=== PATIENT | female | born 1990 | race Caucasian/White ===

== ENCOUNTER 2019-03-14 19:55 | Emergency (ER) | payer SELFPAY ==
[2019-03-14] MEDS ORDERED: HYDROCODONE/APAP 5/325 MG TAB ONE (21:23)
--- NOTE | 2019-03-14 21:56 | ER ---
Nurse's Notes [facility] Name: Leonie Eaton Age: 29 yrs Sex: Female : 1990 Arrival Date: 03/14/2019 Time: 19:59 Bed 19 Private MD: Diagnosis: Other sprain of left foot;Sprain of ankle Presentation: 03/14 20:31 Presenting complaint: Patient states: Fell in a rut this evening, pain and swelling to lp1 lateral left foot; pain when bearing weight. Transition of care: patient was not received from another setting of care. Onset of symptoms was March 14, 2019 at 19:30. Risk Assessment: Do you want to hurt yourself or someone else? Patient reports no desire to harm self or others. Initial Sepsis Screen: Does the patient meet any 2 criteria? No. Patient's initial sepsis screen is negative. Does the patient have a suspected source of infection? No. Patient's initial sepsis screen is negative. Care prior to arrival: None. 20:31 Method Of Arrival: Ambulatory lp1 20:31 Acuity: VALERY 4 lp1 Triage Assessment: 03/15 00:50 General: Appears uncomfortable, Behavior is calm, cooperative. cr4 00:52 Injury Description: patient was walking and stepped on a small hole/dip in the ground. cr4 She heard something pop. 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 - Social history:: Smoking status: Patient/guardian denies using tobacco. - Ebola Screening: : No symptoms or risks identified at this time. Screenin:33 Abuse screen: Denies threats or abuse. Denies injuries from another. Nutritional lp1 screening: No deficits noted. Tuberculosis screening: No symptoms or risk factors identified. 21:00 Fall Risk None identified. cr4 Assessment: 20:50 General: Appears uncomfortable, Behavior is calm, cooperative, appropriate for age. cr4 Pain: Complains of pain in left lateral foot. Neuro: Reports numbness in left lateral foot. Cardiovascular: Denies chest pain, lightheadedness, nausea, shortness of breath. Respiratory: Denies cough, shortness of breath labored breathing. GI: No signs and/or symptoms were reported involving the gastrointestinal system. Patient currently denies. : No signs and/or symptoms were reported regarding the genitourinary system. EENT: No signs and/or symptoms were reported regarding the EENT system. Derm: Skin is moist, Skin is pink, warm \\T\\ dry. Musculoskeletal: Capillary refill < 3 seconds, Range of motion: intact in all extremities, raised area on left lateral foot. Tenderness present in left lateral foot. Reports numbness in left lateral foot. 21:30 Reassessment: Patient and/or family updated on plan of care and expected duration. Pain cr4 level reassessed. Patient states feeling better. Patient states symptoms have improved. Vital Signs: 20:31 BP 159 / 71; Pulse 71; Resp 18; Temp 98.4(TE); Pulse Ox 100% on R/A; Weight 97.52 kg lp1 (R); Height 4 ft. 9 in. (144.78 cm); Pain 10/10; 22:00 BP 130 / 78; Pulse 80; Resp 18; Temp 97.6; Pulse Ox 98% ; Pain 2/10; cr4 20:31 Body Mass Index 46.53 (97.52 kg, 144.78 cm) lp1 ED Course: 19:59 Patient arrived in ED. ag3 20:31 Triage completed. lp1 20:31 Arm band placed on left wrist. lp1 20:34 Jason Nunez PA is PHCP. jmm 20:34 Dawit Rodney MD is Attending Physician. jmm 21:00 Patient has correct armband on for positive identification. Bed in low position. Call cr4 light in reach. Side rails up X2. 21:11 Foot Left 3 View XRAY In Process Unspecified. EDMS 21:11 Ankle Left 3 View XRAY In Process Unspecified. EDMS 21:50 Crutch training done. Orthoglass splint: Posterior short lleg splint applied on left cr4 leg. 21:55 Jonathan Willis MD is Referral Physician. jmm 22:12 No provider procedures requiring assistance completed. Patient did not have IV access cr4 during this emergency room visit. Administered Medications: 21:27 Drug: [place] 5 mg-325 mg 1 tabs Route: PO; cr4 Outcome: 21:56 Discharge ordered by . manjinder 22:12 Discharged to home ambulatory, with crutches, with friend. cr4 22:12 Condition: good 22:12 Discharge instructions given to patient, family, Instructed on discharge instructions, follow up and referral plans. crutch walking, Demonstrated understanding of Prescriptions given X 22:13 Patient left the ED. cr4 Signatures: Dispatcher [employer] EDMS Jason Nunez PA PA jmm Ruiz, Claudia RN RN cr4 Danyell Lovett RN RN lp1 Ansley Matthews3
--- NOTE | 2019-03-14 21:57 | EDPHYS ---
Physician Documentation [facility] Name: Leonie Eaton Age: 29 yrs Sex: Female : 1990 Arrival Date: 03/14/2019 Time: 19:59 Bed 19 Private MD: ED Physician Dawit Rodney HPI: 03/14 20:39 This 29 yrs old Female presents to ER via Ambulatory with complaints of Foot jmm Injury. 20:39 The patient presents with an injury. Onset: The symptoms/episode began/occurred jmm acutely. Modifying factors: The symptoms are alleviated by nothing. the symptoms are aggravated by nothing. Associated signs and symptoms: Pertinent positives: swelling, Pertinent negatives. This is a 29 year old female that presents to the ED with complaints of left foot and ankle pain after twisting her foot as she stepped in a rut in her back yard. . 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 - Social history:: Smoking status: Patient/guardian denies using tobacco. - Ebola Screening: : No symptoms or risks identified at this time. ROS: 20:39 Constitutional: Negative for fever, chills, and weight loss, Cardiovascular: Negative jmm for chest pain, palpitations, and edema, Respiratory: Negative for shortness of breath, cough, wheezing, and pleuritic chest pain. 20:39 MS/extremity: Positive for injury or acute deformity, pain, swelling. 20:39 All other systems are negative. Exam: 20:39 Constitutional: This is a well developed, well nourished patient who is awake, alert, jmm and in no acute distress. Head/Face: atraumatic. Eyes: EOMI, no conjunctival erythema appreciated ENT: Moist Mucus Membranes Neck: Trachea midline, Supple Chest/axilla: Normal chest wall appearance and motion. Cardiovascular: Regular rate and rhythm. No edema appreciated Respiratory: Normal respirations, no respiratory distress appreciated Abdomen/GI: Non distended, soft Skin: General appearance color normal 20:39 Musculoskeletal/extremity: swelling noted ot the left ankle, metatarsal os ttp. compartments are soft, NVI. 20:39 Skin: Appearance: Color: normal in color. 20:39 Neuro: Orientation: is normal, Mentation: is normal, Memory: is normal. 20:39 Psych: Behavior/mood is pleasant, cooperative. Vital Signs: 20:31 BP 159 / 71; Pulse 71; Resp 18; Temp 98.4(TE); Pulse Ox 100% on R/A; Weight 97.52 kg lp1 (R); Height 4 ft. 9 in. (144.78 cm); Pain 10/10; 22:00 BP 130 / 78; Pulse 80; Resp 18; Temp 97.6; Pulse Ox 98% ; Pain 2/10; cr4 20:31 Body Mass Index 46.53 (97.52 kg, 144.78 cm) lp1 MDM: 20:36 Patient medically screened. [facility] 20:42 Data reviewed: vital signs, nurses notes. [facility] 21:55 Data reviewed: radiologic studies, plain films. Counseling: I had a detailed discussion de with the patient and/or guardian regarding: the historical points, exam findings, and any diagnostic results supporting the discharge/admit diagnosis, radiology results, the need for outpatient follow up, to return to the emergency department if symptoms worsen or persist or if there are any questions or concerns that arise at home. 03/14 20:37 Order name: Foot Left 3 View XRAY [facility] 03/14 20:39 Order name: Ankle Left 3 View XRAY [facility] 03/14 21:37 Order name: Posterior Orthoglass Ankle Splint [facility] 03/14 21:37 Order name: Crutches; Complete Time: 00:58 [facility] Administered Medications: 21:27 Drug: [place] 5 mg-325 mg 1 tabs Route: PO; cr4 Disposition: 03/14/19 21:56 Discharged to Home. Impression: Other sprain of left foot, Sprain of ankle. - Condition is Stable. - Discharge Instructions: Ankle Sprain, Foot Sprain. - Medication Reconciliation Form, Thank You Letter, Antibiotic Education, Prescription Opioid Use form. - Follow up: Jonathan Willis MD; When: 2 - 3 days; Reason: Recheck today's complaints, Continuance of care, Re-evaluation by your physician. Addendum: 03/17/2019 08:31 Co-signature as Attending Physician, Dawit Rodney MD I agree with the assessment and c ramirez plan of care. Signatures: Dispatcher [employer] EDDawit Hess MD MD cha Mickail, Joel, PA PA jmm Ruiz, Claudia, RN RN cr4 Danyell Lovett RN RN lp1 Corrections: (The following items were deleted from the chart) 03/14 22:13 21:56 03/14/2019 21:56 Discharged to Home. Impression: Other sprain of left foot; cr4 Sprain of ankle. Condition is Stable. Forms are Medication Reconciliation Form, Thank You Letter, Antibiotic Education, Prescription Opioid Use. Follow up: Jonathan Willis; When: 2 - 3 days; Reason: Recheck today's complaints, Continuance of care, Re-evaluation by your physician. manjinder
[2019-03-14 22:33] VITALS: BP 159/71; TEMP 98.4; O2SAT 100
--- NOTE | 2019-03-14 23:32 | RAD REPORT ---
EXAM DESCRIPTION: RAD - Foot Left 3 View - 03/14/2019 9:09 pm CLINICAL HISTORY: foot pain Fall, trauma, pain COMPARISON: <Comparisons> FINDINGS: No acute fracture or dislocation seen. Prominent calcaneal spurs are present.
--- NOTE | 2019-03-15 09:16 | RAD REPORT ---
EXAM DESCRIPTION: RAD - Ankle Left 3 View -03/14/2019 9:09 pm CLINICAL HISTORY: Left ankle pain status post injury FINDINGS: A vertical lucency overlies the lateral malleolus on the frontal view. Most likely it repr esents either trabecula or artifact rather than a nondisplaced fracture. However, if patient has poi nt tenderness in this region then repeat frontal view would be recommended Otherwise no fracture or dislocation
== END 2019-03-14 22:13 | disposition home or self-care (01) ==
LOC: ER 19:55
DX: S93.492A Sprain of other ligament of left ankle, initial encounter (principal); S93.692A Other sprain of left foot, initial encounter; X58.XXXA Exposure to other specified factors, initial encounter; Y93.89 Activity, other specified; Y92.89 Other specified places as the place of occurrence of the external cause; Z88.0 Allergy status to penicillin; Z88.8 Allergy status to other drugs, medicaments and biological substances
CPT/HCPCS: 99284

== ENCOUNTER 2019-07-03 06:22 | Emergency (ER) | payer SELFPAY ==
[2019-07-03 07:07] LABS: Absolute Lymphocytes (CBC) 1.1 K/uL (0.7-4.9); Basophils % 0.1 % (0-1.3); Hematocrit 40.6 % (36.0-45.0); Lymphocytes % 15.2 % (15.3-44.8); MPV 9.5 fL (7.6-11.3); RBC Red Blood Cell Count 4.85 M/uL (3.86-4.86)
[2019-07-03 07:19] LABS: BUN Blood Urea Nitrogen 13 mg/dL (7-18); Bicarbonate 24 mmol/L (21-32); Glucose Level 132 mg/dL (74-106); Potassium 3.8 mmol/L (3.5-5.1); Sodium Level 139 mmol/L (136-145); Troponin (Emerg Dept Use Only) < 0.02 ng/mL (0.0-0.045)
[2019-07-03] MEDS ORDERED: KETOROLAC 30 MG/ML INJ ONE (07:49)
[2019-07-03] MEDS ORDERED: LORazepam 2 MG/ML VIAL ONE (07:50)
--- NOTE | 2019-07-03 08:25 | ER ---
Nurse's Notes [facility] Name: Leonie Eaton Age: 29 yrs Sex: Female : 1990 Arrival Date: 07/03/2019 Time: 06:23 Bed 14 Private MD: Diagnosis: Chest pain, unspecified Presentation: 07/03 06:33 Presenting complaint: Patient states: Pt reports she started having chest pain at 4 AM. ea Pt pointing to the epigastric region reports it starts there and wraps around to her back. Transition of care: patient was not received from another setting of care. Onset of symptoms was July 03, 2019. Risk Assessment: Do you want to hurt yourself or someone else? Patient reports no desire to harm self or others. Initial Sepsis Screen: Does the patient meet any 2 criteria? No. Patient's initial sepsis screen is negative. Does the patient have a suspected source of infection? No. Patient's initial sepsis screen is negative. Care prior to arrival: None. 06:33 Method Of Arrival: Ambulatory ea 06:33 Acuity: VALERY 3 ea Triage Assessment: 06:39 General: Appears in no apparent distress. Behavior is calm, cooperative, appropriate ea for age. Pain: Complains of pain in xyphoid area Pain radiates to back. Neuro: Level of Consciousness is awake, alert, obeys commands, Oriented to person, place, time. Cardiovascular: Patient's skin is warm and dry. Respiratory: Airway is patent Respiratory effort is even, unlabored, Respiratory pattern is regular, symmetrical. Derm: Skin is pink, warm \\T\\ dry. 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 - Social history:: Smoking status: Patient/guardian denies using tobacco. - Ebola Screening: : No symptoms or risks identified at this time. Screenin:36 Abuse screen: Denies threats or abuse. Nutritional screening: No deficits noted. ea Tuberculosis screening: No symptoms or risk factors identified. Fall Risk None identified. Assessment: 06:41 Reassessment: see triage assessment. Pain: Complains of pain in chest Pain radiates to ea back Quality of pain is described as pressure, Pain began 2 hours ago. Is continuous, Alleviated by nothing. 08:10 Reassessment: Patient appears in no apparent distress at this time. Patient and/or ch family updated on plan of care and expected duration. Pain level reassessed. Neuro: No deficits noted. Cardiovascular: Reports chest pain, Heart tones S1 S2 present Capillary refill < 3 seconds in bilateral fingers toes Clubbing of nail beds is absent Patient's skin is warm and dry. Pulses are all present. Edema is absent. Rhythm is sinus rhythm. Respiratory: Airway is patent Respiratory effort is even, unlabored, Breath sounds are clear bilaterally. GI: No signs and/or symptoms were reported involving the gastrointestinal system. : No signs and/or symptoms were reported regarding the genitourinary system. Derm: Skin is pink, warm \\T\\ dry. 08:43 Reassessment: Patient appears in no apparent distress at this time. Patient and/or ch family updated on plan of care and expected duration. Pain level reassessed. Patient is alert, oriented x 3, equal unlabored respirations, skin warm/dry/pink. Patient denies pain at this time. Patient states feeling better. Patient states symptoms have improved. Vital Signs: 06:38 BP 128 / 75; Pulse 72; Resp 18; Temp 98.5; Pulse Ox 100% ; Weight 95.25 kg; Height 5 ea ft. (152.40 cm); 08:10 BP 115 / 79; Pulse 75; Resp 14; Temp 98.2; Pulse Ox 99% on R/A; Pain 0/10; ch 08:43 BP 126 / 68; Pulse 69; Resp 14; Temp 98.4; Pulse Ox 99% on R/A; Pain 0/10; ch 06:38 Body Mass Index 41.01 (95.25 kg, 152.40 cm) ea ED Course: 06:23 Patient arrived in ED. es 06:25 [facility]C [facility] kb 06:25 Stan Sy MD is Attending Physician. kb 06:36 Triage completed. ea 06:37 Patient has correct armband on for positive identification. Bed in low position. Call ea light in reach. Pulse ox on. NIBP on. 06:38 Arm band placed on right wrist. Patient placed in an exam room, on a stretcher, on ea pulse oximetry. 06:39 Patient maintains SpO2 saturation greater than 95% on room air. ea 07:12 Alexandria Ledbetter, RN is Primary Nurse. ch 07:24 Chest Pa And Lat (2 Views) XRAY In Process Unspecified. EDMS 08:43 No apparent distress. ch 08:43 No provider procedures requiring assistance completed. IV discontinued, intact, ch bleeding controlled, No redness/swelling at site. Pressure dressing applied, pt had a 20G R AC IV placed prior to my arrival. Administered Medications: 07:50 Drug: TORadol - Ketorolac 15 mg Route: IVP; Site: right antecubital; ch 08:18 Follow up: Response: No adverse reaction; Marked relief of symptoms; Pain is decreased ch 07:50 Drug: Ativan 0.5 mg Route: IVP; Site: right antecubital; ch 08:19 Follow up: Response: No adverse reaction; Marked relief of symptoms Outcome: 08:23 Discharge ordered by . kb 08:40 Discharged to home ambulatory, with family. ch 08:40 Condition: stable 08:40 Discharge instructions given to patient, family, Instructed on discharge instructions, follow up and referral plans. medication usage, Demonstrated understanding of instructions, follow-up care, medications. 08:44 Patient left the ED. Signatures: Dispatcher [employer] Katelyn Jo, ELECTRICAL & INSTRUMENTATION SUPERVISOR-C ELECTRICAL & INSTRUMENTATION SUPERVISOR-Alexandria Johnson, RN RN Tammie Sanchez Elena RN JAVY
--- NOTE | 2019-07-03 08:25 | EDPHYS ---
Physician Documentation [facility] Name: Leonie Eaton Age: 29 yrs Sex: Female : 1990 Arrival Date: 07/03/2019 Time: 06:23 Bed 14 Private MD: ED Physician Stan Sy HPI: 07/03 06:46 This 29 yrs old Female presents to ER via Ambulatory with complaints of Chest kb Pain. 06:53 The patient or guardian reports chest pain that is located primarily in the substernal kb area. The pain does not radiate. Associated signs and symptoms: Pertinent positives: shortness of breath. The chest pain is described as a heaviness. Duration: The patient or guardian reports a single episode. Modifying factors: The symptoms are alleviated by nothing. the symptoms are aggravated by nothing. Severity of pain: At its worst the pain was moderate in the emergency department the pain is unchanged. The patient has not experienced similar symptoms in the past. The patient has not recently seen a physician. Pt reports chest pain that started at 0400. States it feels like previous panic attacks so she thought that was it due to the fireworks still going on, but the pain with panic attacks normally goes away after 30-45 minutes and this pain hasn't let up yet. 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 - Social history:: Smoking status: Patient/guardian denies using tobacco. - Ebola Screening: : No symptoms or risks identified at this time. ROS: 06:44 Constitutional: Negative for fever, chills, and weight loss, ENT: Negative for injury, kb pain, and discharge, Neck: Negative for injury, pain, and swelling, Abdomen/GI: Negative for abdominal pain, nausea, vomiting, diarrhea, and constipation, Back: Negative for injury and pain, MS/Extremity: Negative for injury and deformity, Skin: Negative for injury, rash, and discoloration, Neuro: Negative for headache, weakness, numbness, tingling, and seizure. 06:44 Cardiovascular: Positive for chest pain, Negative for edema, orthopnea, palpitations, paroxysmal nocturnal dyspnea. 06:44 Respiratory: Positive for shortness of breath. Exam: 06:45 Constitutional: This is a well developed, well nourished patient who is awake, alert, kb and in no acute distress. Head/Face: Normocephalic, atraumatic. Chest/axilla: Normal chest wall appearance and motion. Nontender with no deformity. No lesions are appreciated. Cardiovascular: Regular rate and rhythm with a normal S1 and S2. No gallops, murmurs, or rubs. Normal PMI, no JVD. No pulse deficits. Respiratory: Lungs have equal breath sounds bilaterally, clear to auscultation and percussion. No rales, rhonchi or wheezes noted. No increased work of breathing, no retractions or nasal flaring. Abdomen/GI: Soft, non-tender, with normal bowel sounds. No distension or tympany. No guarding or rebound. No evidence of tenderness throughout. Skin: Warm, dry with normal turgor. Normal color with no rashes, no lesions, and no evidence of cellulitis. MS/ Extremity: Pulses equal, no cyanosis. Neurovascular intact. Full, normal range of motion. Neuro: Awake and alert, GCS 15, oriented to person, place, time, and situation. Cranial nerves II-XII grossly intact. Motor strength 5/5 in all extremities. Sensory grossly intact. Cerebellar exam normal. Normal gait. 06:45 ECG was reviewed by the Attending Physician. Vital Signs: 06:38 BP 128 / 75; Pulse 72; Resp 18; Temp 98.5; Pulse Ox 100% ; Weight 95.25 kg; Height 5 ea ft. (152.40 cm); 08:10 BP 115 / 79; Pulse 75; Resp 14; Temp 98.2; Pulse Ox 99% on R/A; Pain 0/10; ch 08:43 BP 126 / 68; Pulse 69; Resp 14; Temp 98.4; Pulse Ox 99% on R/A; Pain 0/10; ch 06:38 Body Mass Index 41.01 (95.25 kg, 152.40 cm) ea [facility]: 06:34 Patient medically screened. kb 06:44 Data reviewed: vital signs, nurses notes. Data interpreted: Pulse oximetry: on room air kb is 100 %. Interpretation: normal. 08:22 Test interpretation: by ED physician or midlevel provider: plain radiologic studies, kb neg. Counseling: I had a detailed discussion with the patient and/or guardian regarding: the historical points, exam findings, and any diagnostic results supporting the discharge/admit diagnosis, lab results, radiology results, the need for outpatient follow up, a family practitioner, to return to the emergency department if symptoms worsen or persist or if there are any questions or concerns that arise at home. 08:23 ED course: Pt reports symptoms have resolved. kb 07/03 06:43 Order name: Basic Metabolic Panel; Complete Time: 07:22 kb 07/03 06:43 Order name: CBC with Diff; Complete Time: 07:08 kb 07/03 06:43 Order name: Troponin (emerg Dept Use Only); Complete Time: 07:22 kb 07/03 06:43 Order name: Chest Pa And Lat (2 Views) XRAY kb 07/03 06:43 Order name: EKG; Complete Time: 06:44 kb 07/03 06:43 Order name: Cardiac monitoring; Complete Time: 06:44 kb 07/03 06:43 Order name: EKG - Nurse/Tech; Complete Time: 06:44 kb 07/03 06:43 Order name: IV Saline Lock; Complete Time: 06:55 kb 07/03 06:43 Order name: Labs collected and sent; Complete Time: 06:55 kb 07/03 06:43 Order name: O2 Per Protocol; Complete Time: 06:45 kb 07/03 06:43 Order name: O2 Sat Monitoring; Complete Time: 06:45 kb EC:45 Rate is 70 beats/min. Rhythm is regular, Normal Sinus Rhythm. QRS [place] is Normal. [place] kb interval is normal at 128 msec. QRS interval is normal at 96 msec. QT interval is normal at 374 msec. Interpreted by me. Reviewed by me. Administered Medications: 07:50 Drug: TORadol - Ketorolac 15 mg Route: IVP; Site: right antecubital; ch 08:18 Follow up: Response: No adverse reaction; Marked relief of symptoms; Pain is decreased ch 07:50 Drug: Ativan 0.5 mg Route: IVP; Site: right antecubital; ch 08:19 Follow up: Response: No adverse reaction; Marked relief of symptoms ch Disposition: 07/03/19 08:23 Discharged to Home. Impression: Chest pain, unspecified. - Condition is Stable. - Discharge Instructions: Nonspecific Chest Pain, [id number], Panic Attacks, [id number]. - Medication Reconciliation Form, Thank You Letter, Antibiotic Education, Prescription Opioid Use, Family Work Release, Work release form form. - Follow up: Emergency Department; When: As needed; Reason: Worsening of condition. Follow up: Private Physician; When: 2 - 3 days; Reason: Recheck today's complaints, Continuance of care, Re-evaluation by your physician. Addendum: 07/06/2019 23:02 Co-signature as Attending Physician, Stan stokes Signatures: Dispatcher [employer] EDMS Katelyn Lopez, Alexandria Jett, RN RN Stan Hummel MD MD pkl Antunez, Elena, RN RN ea Corrections: (The following items were deleted from the chart) 07/03 08:44 08:23 07/03/2019 08:23 Discharged to Home. Impression: Chest pain, unspecified. ch Condition is Stable. Forms are Medication Reconciliation Form, Thank You Letter, Antibiotic Education, Prescription Opioid Use. Follow up: Emergency Department; When: As needed; Reason: Worsening of condition. Follow up: Private Physician; When: 2 - 3 days; Reason: Recheck today's complaints, Continuance of care, Re-evaluation by your physician. kb
[2019-07-03 08:51] VITALS: O2SAT 99
[2019-07-03 08:53] VITALS: BP 126/68; TEMP 98.4
--- NOTE | 2019-07-03 10:02 | RAD REPORT ---
EXAM DESCRIPTION: RAD - Chest Pa And Lat (2 Views) - 07/03/2019 7:24 am CLINICAL HISTORY: CHEST PAIN COMPARISON: None. TECHNIQUE: PA and lateral views of the chest were obtained. FINDINGS: The lungs are clear of a peripheral mass or consolidation. Interstitial pattern is not out side of normal range. Heart size is normal and central vasculature is within normal limits. No ple ural effusion or pneumothorax seen. No acute bony finding noted. No aortic abnormality. IMPRESSION: No acute cardiopulmonary process.
--- NOTE | 2019-07-04 06:45 | EKG ---
Test Date: 2019-07-03 Test Time: 06:40:00 Wood Technologist: LAURIE MEASUREMENT RESULTS: Intervals: Rate: 70 NH: 128 QRSD: 96 QT: 374 QTc: 403 [place]: P: 34 NH: 128 QRS: 25 T: 40 INTERPRETIVE STATEMENTS: Normal sinus rhythm Normal ECG Compared to ECG 05/30/2001 15:31:00 No significant changes Electronically Signed On 07-04-19 06:43:39 PROGRAM ENGINEER by Alonso Vinson
== END 2019-07-03 08:44 | disposition home or self-care (01) ==
LOC: ER 06:22
DX: R07.9 Chest pain, unspecified (principal); Z88.0 Allergy status to penicillin; Z88.8 Allergy status to other drugs, medicaments and biological substances
CPT/HCPCS: 36415; 71046; 80048; 84484; 85025; 93005; 96374; 96375; 99285

== ENCOUNTER 2024-10-06 13:00 | Emergency (ER) | payer SELFPAY ==
--- OUTSIDE RECORDS SUMMARY | 2024-10-06 13:04 | XMS REPORT | Continuity of Care Document ---
Author Name Unknown Address [address] [facility] [address] [place] [address] [facility] Address [address] [facility] [place] [address] Care Team Providers Care Handkerchief Cutter Name Role Phone TL MARY KATE E Attending Clinician Unavailable GERMAN VASQUES Attending Clinician Unavailable KINDRA JAMES Attending Clinician Unavaila ble Shield Attending Clinician Unavailable Nguyen_Tho Attending Clinician Unavailable RUBIN BENDER Attending Clinician UnaABDIRAHMAN Marks Attending Clinician Unavailable VINCE FELIX Attending Clinician Unavailable ESEQUIEL YBARRA Attending Clinician Unavailable MILENA YI Attending Clinician Unavaila JEYSON greenberg BA Attending Clinician Unavailable WAYNE RIVERA Attending Clinician Unavaila MARLENA Bruno Attending Clinician Unavaila JOE Diaz Attending Clinician UnavailDA Carroll Attending Clinician Unavailab le Shield Admitting Clinician Unavailable Nguyen_Tho Admitting Clinician Unavailable MILENA YI Admitting Clinician Unavaila dionicio Payers Payer Name Policy Type Policy Number Effective Date Expirati on Date Source [facility] ([facility] [id number] 2021 00:00:00 [place] [id number] 2020 00:00:00 [facility] 2 [id number] 2021 00:00:00 Allergies, Adverse Reactions, Alerts Allergy Name Allergy Type Status Severity Reaction(s) Onset Date Inactive Date Treating Clinician Comments Source Penicill in v Allergy to substanc e [facility] Zyrtec Allergy to substanc e [facility] Medications Ordered Medication Name Filled Medication Name Start Date Stop Date Current Medication? Ordering Clinician Indication Dosage Frequency Signature (SIG) Comments Components Source tramadol 50 mg tablet tramadol 50 mg tablet No tramadol 50 mg tablet [facility] Vital Signs Vital Name Observation Time Observation Value Comments S ource BP Systolic 2024-07-17 00:00:00 144 mm[Hg] [facility] Body Weight 2024-07-17 00:00:00 225 [lb_av] [facility] BP Diastolic 2024-07-17 00:00:00 89 mm[Hg] [facility] Height 2024-07-17 00:00:00 60.8 [in_i] [facility] BMI (Body Mass Index) 2024-07-17 00:00:00 42.8 kg/m2 [facility] Height 2024-07-08 00:00:00 60.8 [in_i] [facility] BP Diastolic 2024-07-08 00:00:00 91 mm[Hg] [facility] Body Weight 2024-07-08 00:00:00 3600 [oz_av] [facility] BMI (Body Mass Index) 2024-07-08 00:00:00 42.8 kg/m2 [facility] BP Systolic 2024-07-08 00:00:00 145 mm[Hg] [facility] Procedures Procedure Date / Time Performed Performing Clinician Source Laparoscopic Cholecystectomy 2024-07-11 00:00:00 [facility] unlisted imaging order 2024-07-09 00:00:00 [facility] Section [facility] Encounters Start Date/Time End Date/Time Encounter Type Admission Type Attending Clinicians Care Facility Care Department Encounter ID Source 2024-07-14 09:00:00 Inpatient MARY KATE KUMAR [facility] [id number] [facility] 2024-09-01 11:00:00 2024-09-01 11:00:00 Outpatient GERMAN VASQUES [id number] [facility]24-[facility]25 11:00:00 2024-08-25 11:00:00 Outpatient GERMAN VASQUES [id number] Jeanie العليmarcelino 2024-07-17 00:00:00 2024-07-17 00:00:00 Kelton James MD: [address], [address], [place] [address] , Ph. [phone] [facility] [id number] [facility] 2024-07-11 12:54:00 2024-07-11 12:54:00 Outpatient KINDRA MCKAY [facility] [id number] [facility] 2024-07-10 14:44:00 2024-07-10 14:44:00 Outpatient MARY KATE KUMAR [facility] [id number] [facility] 2024-07-08 16:21:00 2024-07-08 16:21:00 Outpatient MARY KATE KUMAR [facility] [id number] [facility] 2024-07-08 00:00:00 2024-07-08 00:00:00 Mary Kate Herzog NP: [address], [address], [place] [address] , Ph. [facility] [id number] [facility] 2022-01-18 00:00:00 2022-01-18 00:00:00 Outpatient Tl [facility] [id number] [facility] 2022-01-10 04:53:00 2022-01-10 04:53:00 Outpatient Ainsley_Valenteo CODAHLIA [facility] [id number] 0712 [facility] 2021-12-19 15:15:00 2021-12-19 15:15:00 Outpatient RUBIN BENDER JEANIE JEANIE [id number] Jeanie Soriano 2021-01-25 04:06:00 2021-01-25 04:06:00 Outpatient Kenneth MORGAN [facility] [id number] 0727 [facility] 2019-09-16 20:57:00 2019-09-16 21:33:00 Emergency ER ABDIRAHMAN COTTRELL [facility] [id number] [facility] 2018-12-11 15:13:00 2018-12-11 16:30:00 Emergency TR MAITE FELIXNikko [facility] [id number] [facility] 2016-01-23 21:55:00 2016-01-23 22:55:00 Emergency ER ESEQUIEL YBARRA [facility] [id number] [facility] 2016-01-06 15:00:00 2016-01-08 10:00:00 [facility] [id number] [facility] 2016-01-03 19:27:00 2016-01-03 22:00:00 Emergency ER MILENA YI [facility] [id number] [facility] 2015-12-29 10:36:00 2015-12-29 10:36:00 Outpatient MILENA CASTILLO [facility] [id number] [facility] 2015-11-10 08:07:00 2015-11-10 08:07:00 Outpatient MILENA CASTILLO [facility] [id number] [facility] 2015-11-03 08:57:00 2015-11-03 08:57:00 Outpatient MILENA CASTILLO [facility] [id number] [facility] 2015-10-20 01:50:00 2015-10-20 04:07:00 Emergency ER JEYSON SCHOFIELD [facility] [id number] [facility] 2015-06-14 15:47:00 2015-06-14 15:47:00 Outpatient MILENA CASTILLO [facility] [id number] [facility] 2013-01-28 22:35:00 2013-01-29 01:17:00 Emergency ER WAYNE RIVERA [facility] [id number] [facility] 2011-07-18 13:42:00 2011-07-18 17:11:00 Emergency ER MARLENA LIMA [facility] [id number] [facility] 2008-01-08 16:45:00 2008-01-08 20:40:00 Emergency ER JOE MRATINEZ [facility] [id number] [facility] 2007-12-16 22:32:00 2007-12-16 22:32:00 Emergency ER JOE MARTINEZ [facility] [id number] [facility] 2005-02-25 11:22:00 2005-02-25 16:17:00 Emergency ER DA JAMES [facility] [id number] [facility] 2003-04-01 15:00:00 2003-04-01 19:00:00 Emergency ER DA JAMES [facility] [id number] [facility] Results Test Description Test Time Test Comments Results Result Co mments Source [id number] 12:35:00* Test Item Value Reference Range Interpretation Comme nts color, urine (test code = co antolin, urine) Yellow appearance, urine (test code = appearance, urine) Clear clear urine glucose (test code = u rine glucose) Negative negative bilirubin, urine (test code = bilirubin, urine) Negative negative ketone, urine (test code = k etone, urine) Negative negative specific gravity,urine (test code = specific gravity,urine) 1.023 1.003-1.030 blood urine (test code = blo od urine) 3+ (LARGE) negative A pH,urine (test code = pH,urine) 7.500 5-9 protein urine (UA) (test cod e = protein urine (UA)) Trace negative urobilinogen, urine (test co de = urobilinogen, urine) 1.0 mg/dL 0.2-1.0 nitrate, urine (test code = nitrate, urine) Negative negative urine leukocyte esterase (te st code = urine leukocyte esterase) Negative negative RBC, urine (test code = RBC, urine) 0-2 0-5 WBC, urine (test code = WBC, urine) 6-10 0-5 A epithelial cell (test code = epithelial cell) 3-5 0-5 bacteria, urine (test code = bacteria, urine) Occasional none detect casts,urine (test code = casts,urine) 0-2 none detect A urine culture added? (test c ode = urine culture added?) NO [facility] 2000 [facility] - Serum or Plasma 2024-07-11 11:47:00* Test Item Value Reference Range Interpretation Comme nts glucose (test code = glucose) 128 mg/dL 74-106 H blood urea nitrogen (test co de = blood urea nitrogen) 11 mg/dL 6-20 osmolality calculated,serum (test code = osmolality calculated,serum) 279 mOsm/kg 280-300 L creatinine (test code = creatinine) 0.53 mg/dL 0.50-0.90 glomerular filtration rate ( test code = glomerular filtration rate) > 60.00 BUN/creatinine ratio (test c ode = BUN/creatinine ratio) 20.8 12.0-20.0 H sodium level (test code = so dium level) 139 mmol/L 135-145 potassium level (test code = potassium level) 4.2 mmol/L 3.5-5.2 chloride level (test code = chloride level) 104 mmol/L 98-108 CO2 (test code = CO2) 24 mmol/L 21-32 anion gap (test code = anion gap) 15.2 mEq/L 12.0-20.0 calcium level (test code = calcium level) 8.8 mg/dL 8.6-10.0 total protein (test code = t otal protein) 7.1 g/dL 6.6-8.7 albumin (test code = albumin) 4.1 g/dL 3.5-5.2 globulin (test code = globulin) 3.0 g/dL 1.5-4.5 A/G ratio (test code = A/G ratio) 1.4 >1.0 bilirubin,total (test code = bilirubin,total) 0.4 mg/dL 0.0-1.2 AST/SGOT (test code = AST/SGOT) 19 U/L 15-32 ALT/SGPT (test code = ALT/SGPT) 22 U/L 0-33 alkaline phosphatase, total (test code = alkaline phosphatase, total) 167 U/L 35-105 H [facility] 11:47:00* Test Item Value Reference Range Interpretation Comme nts lipase (test code = lipase) 30 U/L 13-60 [facility] Differential panel - [id number] 11:29:00 * Test Item Value Reference Range Interpretation Comme nts white blood count (test code = white blood count) 5.9 K/uL 4.0-11.5 red blood count (test code = red blood count) 4.63 M/uL 3.80-5.20 hemoglobin (test code = hemoglobin) 9.2 g/dL 10.5-15.7 L hematocrit (test code = hematocrit) 32.9 % 34.0-50.0 L mean corpuscular volume (zac t code = mean corpuscular volume) 71.1 fL 86.0-100.0 L mean corpuscular hemoglobin (test code = mean corpuscular hemoglobin) 19.9 pg 26.2-33.4 L mean corpuscular HGB conc (t est code = mean corpuscular HGB conc) 28.0 g/dL 30.0-34.0 L red cell distribution width (test code = red cell distribution width) 17.0 % 12.0-15.5 H platelet count (test code = platelet count) 406 K/uL 165-450 mean platelet volume (test c ode = mean platelet volume) 10.1 fL 9.4-12.6 neutrophils % (test code = neutrophils %) 65.3 % 44.4-80.1 Ig% (test code = Ig%) 0.3 % 0.0-0.4 lymphocyte% (test code = lymphocyte%) 25.5 % 10.0-50.0 mono % (test code = mono %) 7.0 % 3.6-12.0 eos % (test code = eos %) 1.9 % 0.0-5.4 basophil % (test code = baso jeff %) 0.0 % 0.1-1.2 L absolute neutrophil count (t est code = absolute neutrophil count) 3.82 K/uL 1.56-6.13 Ig# (test code = Ig#) 0.02 K/uL 0.00-0.03 lymph # (test code = lymph #) 1.49 K/uL 1.18-3.74 mono # (test code = mono #) 0.41 K/uL 0.24-0.86 eos # (test code = eos #) 0.11 K/uL 0.04-0.36 basophil # (test code = baso jeff #) 0.00 K/uL 0.01-0.08 L NRBC% (test code = NRBC%) 0 /100 WBC 0-0.2 NRBC# (test code = NRBC#) 0 K/uL [facility] hepatitis 2000 panel - [id number] 00:00:00* Test Item Value Reference Range Interpretation Comme nts Hepatitis A virus IgM Ab [Presence] in Serum or Plasma by Immunoassay (test code = 48310-7) Negative negative Hepatitis B virus surface Ag [Presence] in Serum or Plasma by Immunoassay (test code = 5196-1) Negative negative Hepatitis B virus core IgM A b [Presence] in Serum or Plasma by Immunoassay (test code = 90990-2) Negative negative Hepatitis C virus IgG Ab [Presence] in Serum or Plasma by Immunoassay (test code = 72292-2) Non Reactive non reactive Hepatitis C virus Ab [Presen ce] in Serum or Plasma by Immunoassay (test code = 03176-6) Comment [facility] [Mass/volume] in Serum or Plasma 2024-07-11 00:00:00* Test Item Value Reference Range Interpretation Comme nts Iron binding capacity [Mass/ volume] in Serum or Plasma (test code = 2500-7) 450 ug/dL 250-450 Iron binding capacity.unsatu rated [Mass/volume] in Serum or Plasma (test code = 2501-5) 434 ug/dL 131-425 H Iron [Mass/volume] in Serum or Plasma (test code = 2498-4) 16 ug/dL 27-159 L Iron saturation [Mass Fracti on] in Serum or Plasma (test code = 2502-3) 4 % 15-55 L [facility]obal[facility] (Vitamin B12) and folate panel - Serum 2024-07-11 00:00:00* Test Item Value Reference Range Interpretation Comme nts Cobalamin (Vitamin B12) [Mass/volume] in Serum or Plasma (test code = 2132-9) 229 pg/mL 232-1245 L Folate [Mass/volume] in Seru m or Plasma (test code = 2284-8) 3.7 NG/mL >3.0 [facility] [Mass/volume] in Serum or [id number] 00:00:00* Test Item Value Reference Range Interpretation Comme nts Ferritin [Mass/volume] in Se rum or Plasma (test code = 2276-4) 7 NG/mL 15-[address] [facility] blood [id number] 14:33:00* Test Item Value Reference Range Interpretation Comme [facility] blood collection (test code = [facility] blood collection) [facility] pres id [id number] 09:23:00* Test Item Value Reference Range Interpretation Comme nts culture,urine (test code = culture,urine) SCANT SKIN CHRIS PRESENT. NO PATHOGEN PRESENT AT 2 DAYS. [facility] 2000 panel - Serum or Plasma 2024-07-08 17:30:00* Test Item Value Reference Range Interpretation Comme nts glucose (test code = glucose) 96 mg/dL 74-106 blood urea nitrogen (test co de = blood urea nitrogen) 13 mg/dL 6-20 osmolality calculated,serum (test code = osmolality calculated,serum) 272 mOsm/kg 280-300 L creatinine (test code = creatinine) 0.49 mg/dL 0.50-0.90 L glomerular filtration rate ( test code = glomerular filtration rate) > 60.00 BUN/creatinine ratio (test c ode = BUN/creatinine ratio) 26.5 12.0-20.0 H sodium level (test code = so dium level) 136 mmol/L 135-145 potassium level (test code = potassium level) 3.6 mmol/L 3.5-5.2 chloride level (test code = chloride level) 101 mmol/L 98-108 CO2 (test code = CO2) 23 mmol/L 21-32 anion gap (test code = anion gap) 15.6 mEq/L 12.0-20.0 calcium level (test code = calcium level) 9.3 mg/dL 8.6-10.0 total protein (test code = t otal protein) 7.2 g/dL 6.6-8.7 albumin (test code = albumin) 4.3 g/dL 3.5-5.2 globulin (test code = globulin) 2.9 g/dL 1.5-4.5 A/G ratio (test code = A/G ratio) 1.5 >1.0 bilirubin,total (test code = bilirubin,total) 0.4 mg/dL 0.0-1.2 AST/SGOT (test code = AST/SGOT) 23 U/L 15-32 ALT/SGPT (test code = ALT/SGPT) 25 U/L 0-33 alkaline phosphatase, total (test code = alkaline phosphatase, total) 161 U/L 35-105 H [facility], [id number] 17:30:00* Test Item Value Reference Range Interpretation Comme nts cholesterol level (test code = cholesterol level) 195 mg/dL 150-200 triglycerides level (test co de = triglycerides level) 76 mg/dL <150 HDL cholesterol (test code = HDL cholesterol) 45 mg/dL >65 L LDL cholesterol direct (test code = LDL cholesterol direct) 147 mg/dL <100 H cholesterol risk ratio (test code = cholesterol risk ratio) 4.333 [facility] HospitalHemoglobin A1c [Mass/volume] in [id number] 17:28:00 * Test Item Value Reference Range Interpretation Comme nts Hemoglobin A1c/Hemoglobin.to gracie in Blood (test code = 4548-4) 6.3 % 4.0-6.0 H [facility] W Auto Differential panel - [id number] 17:22:00 * Test Item Value Reference Range Interpretation Comme nts white blood count (test code = white blood count) 7.9 K/uL 4.0-11.5 red blood count (test code = red blood count) 4.39 M/uL 3.80-5.20 hemoglobin (test code = hemoglobin) 8.8 g/dL 10.5-15.7 L hematocrit (test code = hematocrit) 30.4 % 34.0-50.0 L mean corpuscular volume (zac t code = mean corpuscular volume) 69.2 fL 86.0-100.0 L mean corpuscular hemoglobin (test code = mean corpuscular hemoglobin) 20.0 pg 26.2-33.4 L mean corpuscular HGB conc (t est code = mean corpuscular HGB conc) 28.9 g/dL 30.0-34.0 L red cell distribution width (test code = red cell distribution width) 16.9 % 12.0-15.5 H platelet count (test code = platelet count) 436 K/uL 165-450 mean platelet volume (test c ode = mean platelet volume) 10.5 fL 9.4-12.6 neutrophils % (test code = neutrophils %) 67.0 % 44.4-80.1 Ig% (test code = Ig%) 0.4 % 0.0-0.4 lymphocyte% (test code = lymphocyte%) 25.3 % 10.0-50.0 mono % (test code = mono %) 6.0 % 3.6-12.0 eos % (test code = eos %) 1.3 % 0.0-5.4 basophil % (test code = baso jeff %) 0.0 % 0.1-1.2 L absolute neutrophil count (t est code = absolute neutrophil count) 5.29 K/uL 1.56-6.13 Ig# (test code = Ig#) 0.03 K/uL 0.00-0.03 lymph # (test code = lymph #) 1.99 K/uL 1.18-3.74 mono # (test code = mono #) 0.47 K/uL 0.24-0.86 eos # (test code = eos #) 0.10 K/uL 0.04-0.36 basophil # (test code = baso jeff #) 0.00 K/uL 0.01-0.08 L NRBC% (test code = NRBC%) 0 /100 WBC 0-0.2 NRBC# (test code = NRBC#) 0 K/uL [facility] [id number] 17:15:00* Test Item Value Reference Range Interpretation Comme nts color, urine (test code = co antolin, urine) Yellow appearance, urine (test code = appearance, urine) Clear clear urine glucose (test code = u rine glucose) Negative negative bilirubin, urine (test code = bilirubin, urine) Negative negative ketone, urine (test code = k etone, urine) Negative negative specific gravity,urine (test code = specific gravity,urine) 1.028 1.003-1.030 blood urine (test code = blo od urine) Negative negative pH,urine (test code = pH,urine) 5.500 5-9 protein urine (UA) (test cod e = protein urine (UA)) Negative negative urobilinogen, urine (test co de = urobilinogen, urine) 1.0 mg/dL 0.2-1.0 nitrate, urine (test code = nitrate, urine) Negative negative urine leukocyte esterase (te st code = urine leukocyte esterase) Negative negative RBC, urine (test code = RBC, urine) 0-2 0-5 WBC, urine (test code = WBC, urine) 6-10 0-5 A epithelial cell (test code = epithelial cell) 6-10 0-5 A bacteria, urine (test code = bacteria, urine) Moderate none detect A casts,urine (test code = casts,urine) 0-2 none detect A urine culture added? (test c ode = urine culture added?) YES [facility] W Reflex Culture panel - Urine 2024-07-08 17:15:00* Test Item Value Reference Range Interpretation Comme nts color, urine (test code = co antolin, urine) Yellow appearance, urine (test code = appearance, urine) Clear clear urine glucose (test code = u rine glucose) Negative negative bilirubin, urine (test code = bilirubin, urine) Negative negative ketone, urine (test code = k etone, urine) Negative negative specific gravity,urine (test code = specific gravity,urine) 1.028 1.003-1.030 blood urine (test code = blo od urine) Negative negative pH,urine (test code = pH,urine) 5.500 5-9 protein urine (UA) (test cod e = protein urine (UA)) Negative negative urobilinogen, urine (test co de = urobilinogen, urine) 1.0 mg/dL 0.2-1.0 nitrate, urine (test code = nitrate, urine) Negative negative urine leukocyte esterase (te st code = urine leukocyte esterase) Negative negative RBC, urine (test code = RBC, urine) 0-2 0-5 WBC, urine (test code = WBC, urine) 6-10 0-5 A epithelial cell (test code = epithelial cell) 6-10 0-5 A casts,urine (test code = casts,urine) 0-2 none detect A [facility] HospitalThyrotropin [Units/volume] in Serum or [id number] 00:00:00* Test Item Value Reference Range Interpretation Comme nts thyroid stimulating hormone L (test code = thyroid stimulating hormone L) 2.59 uIU/mL 0.36-3.74 [facility]
[2024-10-06] MEDS ORDERED: NA CHLORIDE 0.9% 1,000 ML ONE ×2 (13:30→14:45)
[2024-10-06 13:42] LABS: Specific Gravity > 1.030 (1.005-1.030)
[2024-10-06 13:46] LABS: Specific Gravity > 1.030 (1.005-1.030); Urine Bacteria None Seen /HPF (<20); Urine Bilirubin NEGATIVE (Negative); Urine Blood Trace (Negative); Urine Clarity Clear (Clear); Urine Color Light-Yellow (Yellow); Urine Culture Reflex Order NOT NEEDED; Urine Glucose 4+ (Over) (Negative); Urine Ketones 1+ (Negative); Urine Micro Reflex YN NO BILL MICROSCOPIC; Urine Mucus Slight /HPF (None Seen); Urine Nitrite NEGATIVE (Negative); Urine Protein NEGATIVE (Negative); Urine Urobilinogen Normal (Normal); Urine WBC <5 /HPF (<5)
[2024-10-06 13:54] LABS: Absolute Eosinophils 0.1 K/uL (0-0.5); Absolute Lymphocytes (CBC) 1.8 K/uL (0.7-4.9); Absolute Monocytes 0.4 K/uL (0.1-1.3); Absolute Neutrophil 3.9 K/uL (1.8-8.0); Basophils % 0.1 % (0-1.3); Hematocrit 31.8 % (36.0-45.0); Hemoglobin 9.8 g/dL (12.0-15.0); Lymphocytes % 29.1 % (15.3-44.8); MCH 19.3 pg (27.0-35.0); MCHC 30.7 g/dL (32.0-36.0); MCV 62.7 fL (80-100); MPV 9.3 fL (7.6-11.3); Monocytes % 6.9 % (3.3-12.3); Neutrophils % 61.9 % (41.7-73.7); Nucleated Red Blood Cells % 0.1 % (0-0); Platelets 419 thou/uL (152-406); RBC Red Blood Cell Count 5.06 M/uL (3.86-4.86); Red Cell Distribution Width 18.1 % (12.1-15.2)
[2024-10-06 14:15] LABS: ALT/SGPT 40 U/L (13-56); AST/SGOT 24 U/L (15-37); Albumin 3.9 g/dL (3.4-5.0); Albumin/Globulin Ratio 1.1 (1.1-1.8); Alkaline Phosphatase 182 U/L (45-117); Anion Gap 9.8 mEq/L (5.0-15.0); BETA HYDROXYBUTYRATE 0.28 mmol/L (0.02-0.27); BUN Blood Urea Nitrogen 11 mg/dL (7-18); Bicarbonate 25 mEq/L (21-32); Bilirubin Total 0.6 mg/dL (0.2-1.0); Globulin 3.7 g/dL (2.3-3.5); Glomerular Filtration Rate 115 ml/min (=/>90); Glucose Level 364 mg/dL (74-106); Lipase 55 U/L (13-75); Magnesium 2.1 mg/dL (1.6-2.4); Potassium 3.8 mEq/L (3.5-5.1); Protein, Total 7.6 g/dL (6.4-8.2); Sodium Level 132 mEq/L (136-145)
[2024-10-06 14:20] LABS: Bilirubin Direct < 0.2 mg/dL (0-0.2); Bilirubin Indirect, Calculated 0.4 mg/dL (0.2-0.8)
[2024-10-06] MEDS ORDERED: INSULIN REGULAR (HUMAN) 100 UNIT/ML ONE (15:58)
--- NOTE | 2024-10-06 16:33 | EDPHYS ---
Physician Documentation [facility] Name: Leonie Eaton Age: 34 yrs Sex: Female : 1990 Arrival Date: 10/06/2024 Time: 13:00 Bed 15 Private MD: ED Physician Arthur Roche HPI: 10/06 13:16 This 34 yrs old Female presents to ER via Unassigned with complaints of High Blood sb4 Sugar, Blurred Vision, Migraine. 13:16 Patient states that she has been experiencing blurry vision and migraine over the past sb4 few days. States that her mom checked her blood sugar and it has been running in the 500s. She denies any history of diabetes although it does run in her family. States that she had blood work done in July and her A1c was 6.3. States she was not started on any medications. Denies any pain, nausea, vomiting, fever, chills. Does endorse polydipsia and polyuria. Historical: - Allergies: 13:55 PENICILLINS; ld1 13:55 Zyrtec; ld1 - Immunization history:: Adult Immunizations up to date. - Infectious Disease History:: Denies. - Social history:: Smoking status: Patient denies any tobacco usage or history of. ROS: 13:16 Constitutional: Negative for fever, chills, and weight loss, sb4 13:16 Eyes: Positive for blurry vision, 13:16 Neuro: Positive for headache, 13:16 Endocrine: Positive for polydipsia, polyuria, 13:16 All other systems are negative, Exam: 13:18 Constitutional: This is a well developed, well nourished patient who is awake, alert, sb4 and in no acute distress. Head/Face: Normocephalic, atraumatic. Eyes: Extra-ocular motions intact. Periorbital areas with no swelling, redness, or edema. ENT: Mucous membranes moist. Cardiovascular: Regular rate and rhythm with a normal S1 and S2. Respiratory: No increased work of breathing, no retractions or nasal flaring. Abdomen/GI: Soft, non-tender, no distension. Skin: Warm, dry with normal turgor. Normal color with no rashes, no lesions, and no evidence of cellulitis. Vital Signs: 13:53 BP 146 / 85; Pulse 89; Resp 18; Temp 97.8(TE); Pulse Ox 100% on R/A; Weight 81.65 kg; ld1 Height 5 ft. 2 in. ; Pain 0/10; 14:45 BP 143 / 80; Pulse 83; Resp 18; Pulse Ox 100% on R/A; ld1 15:33 BP 149 / 84; Pulse 76; Resp 18; Pulse Ox 100% on R/A; ld1 13:53 Body Mass Index 32.92 (81.65 kg, 157.48 cm) ld1 13:53 Pain Scale: Adult ld1 MDM: 13:04 Medical Screening Exam initiated sb4 15:07 Data reviewed: vital signs, nurses notes, lab test result(s), I have discussed the sb4 patient's presentation/case with the attending Emergency Department Physician; and as a result, I will discharge patient. Counseling: I had a detailed discussion with the patient and/or guardian regarding the historical points, exam findings, and any diagnostic results supporting the discharge/admit diagnosis, lab results, the need for outpatient follow up, for definitive care, to return to the emergency department if symptoms worsen or persist or if there are any questions or concerns that arise at home. 10/06 13:15 Order name: BETA HYDROXYBUTYRATE; Complete Time: 14:21 sb4 10/06 13:15 Order name: Basic Metabolic Panel; Complete Time: 14:21 sb4 10/06 13:15 Order name: CBC with Diff sb4 10/06 13:15 Order name: Hepatic Function; Complete Time: 14:21 sb4 10/06 13:15 Order name: Lipase; Complete Time: 14:21 sb4 10/06 13:15 Order name: Magnesium; Complete Time: 14:21 sb4 10/06 13:15 Order name: UAM; Complete Time: 13:46 sb4 10/06 13:15 Order name: Test, Urine; Complete Time: 13:43 sb4 10/06 13:28 Order name: Glucose, Ancillary Testing; Complete Time: 13:29 EDMS 10/06 14:54 Order name: Glucose, Ancillary Testing; Complete Time: 15:00 EDMS 10/06 16:07 Order name: Glucose, Ancillary Testing; Complete Time: 16:10 EDMS 10/06 16:44 Order name: Glucose, Ancillary Testing; Complete Time: 16:45 EDMS 10/06 13:15 Order name: Cardiac monitoring; Complete Time: 13:31 sb4 10/06 13:15 Order name: IV Saline Lock; Complete Time: 13:39 sb4 10/06 13:15 Order name: O2 Per Protocol; Complete Time: 13:31 sb4 10/06 13:15 Order name: O2 Sat Monitoring; Complete Time: 13:31 sb4 10/06 14:31 Order name: Accucheck; Complete Time: 14:44 sb4 10/06 15:07 Order name: Accucheck Blood Glucose: after fluids finish; Complete Time: 15:56 sb4 Administered Medications: 13:42 Drug: NS 0.9% IV 1000 ml IV at 1000 ml once; to be given as a bolus over 60 minutes ld1 Route: IV; Rate: 1000 ml; Site: right antecubital; 14:44 Follow up: Response: No adverse reaction; IV Status: Completed infusion; IV Intake: ld1 1000ml 15:00 Drug: NS 0.9% IV 1000 ml IV at 1000 ml once; to be given as a bolus over 60 minutes ld1 Route: IV; Rate: 1000 ml; Site: right antecubital; 16:45 Follow up: IV Status: Completed infusion; IV Intake: 1000ml ld1 16:02 Drug: Insulin Regular Human IVP 5 units IVP once {Co-Signature: bp (Rohan Browning ld1 RN).} Route: IVP; Site: right antecubital; 16:45 Follow up: Response: No adverse reaction ld1 Disposition: 10/07 06:59 Co-signature as Attending Physician, Arthur Roche MD I reviewed the patient's care rn provided by the Advanced Practice Provider and agree with the diagnosis and treatment plan. Disposition Summary: 10/06/24 16:32 Discharge Ordered Notes: Location: Home sb4 Problem: an ongoing problem sb4 Symptoms: have improved sb4 Condition: Stable sb4 Diagnosis - Type 2 diabetes mellitus with hyperglycemia sb4 Followup: sb4 - With: Private Physician - When: 1 week - Reason: Recheck today's complaints, Re-evaluation by your physician Discharge Instructions: - Discharge Summary Sheet sb4 - Type 2 Diabetes Mellitus, Diagnosis, Adult sb4 Forms: - Work release form sb4 - Patient Portal Instructions sb4 - Leadership Thank You Letter sb4 Prescriptions: - Metformin 500 mg Oral tablet - take 1 tablet ORAL route once daily for 7 days Then take 1 tablet with morning sb4 meals AND evening meals; 90 tablet; Refills: 0, Product Selection Permitted Signatures: Dispatcher [employer] EDMS Arthur Roche MD MD rn Margie Briscoe RN RN ld1 Rachael Yeager PAKarolC PAPradeep sb4 Rohan Browning RN bp Corrections: (The following items were deleted from the chart) 10/06 13:16 13:16 BETA HYDROXYBUTYRATE+C.LAB.BRZ ordered. EDMS EDMS 13:16 13:16 BASIC METABOLIC PANEL+C.LAB.BRZ ordered. EDMS EDMS 13:16 13:16 CBC+H.LAB.BRZ ordered. EDMS EDMS 13:16 13:16 HEPATIC FUNCTION+C.LAB.BRZ ordered. EDMS EDMS 13:16 13:16 LIPASE+C.LAB.BRZ ordered. EDMS EDMS 13:16 13:16 MAGNESIUM+C.LAB.BRZ ordered. EDMS EDMS 13:16 13:16 Urinalysis W/Microscopic+U.LAB.BRZ ordered. EDMS EDMS 13:16 13:16 Test, Urine+UC.LAB.BRZ ordered. EDMS EDMS 13:55 13:55 PMHx: "heart problems"; ld1 ld1
--- NOTE | 2024-10-06 16:33 | ER ---
Nurse's Notes [facility] Name: Leonie Eaton Age: 34 yrs Sex: Female : 1990 Arrival Date: 10/06/2024 Time: 13:00 Bed 15 Private MD: Diagnosis: Type 2 diabetes mellitus with hyperglycemia Presentation: 10/06 13:53 Chief complaint: Patient states: History of diabetes in family. Pt reports high blood ld1 sugar X 1 week. Frequent urination, thirsty. Coronavirus screen: At this time, the client does not indicate any symptoms associated with coronavirus-19. Ebola Screen: No symptoms or risks identified at this time. Initial Sepsis Screen: Does the patient meet any 2 criteria? No. Patient's initial sepsis screen is negative. Does the patient have a suspected source of infection? No. Patient's initial sepsis screen is negative. Risk Assessment: Do you want to hurt yourself or someone else? Patient reports no desire to harm self or others. Onset of symptoms was October 06, 2024. 13:53 Method Of Arrival: Ambulatory ld1 13:53 Acuity: VALERY 3 ld1 Triage Assessment: 13:55 General: Appears in no apparent distress. comfortable, Behavior is calm, cooperative, ld1 appropriate for age. Pain: Denies pain. EENT:. Neuro: Level of Consciousness is awake, alert, obeys commands, Oriented to person, place, time, situation. Cardiovascular: Capillary refill < 3 seconds Patient's skin is warm and dry. Respiratory: Airway is patent Respiratory effort is even, unlabored. GI: Abdomen is round non-distended. : Reports urinary frequency. Derm: No signs and/or symptoms reported regarding the dermatologic system. Musculoskeletal: No signs and/or symptoms reported regarding the musculoskeletal system. Historical: - Allergies: 13:55 PENICILLINS; ld1 13:55 Zyrtec; ld1 - Immunization history:: Adult Immunizations up to date. - Infectious Disease History:: Denies. - Social history:: Smoking status: Patient denies any tobacco usage or history of. Screenin:57 [facility] ED Fall Risk Assessment (Adult) History of falling in the last 3 months, ld1 including since admission No falls in past 3 months (0 pts) Confusion or Disorientation No (0 pts) Intoxicated or Sedated No (0 pts) Impaired Gait No (0 pts) Mobility Assist Device Used No (0 pt) Altered Elimination No (0 pt) Score/Fall Risk Level 0 - 2 = Low Risk Oriented to surroundings, Hourly rounding (assess needs \\T\\ fall precautionary measures) done. Abuse screen: Denies threats or abuse. Denies injuries from another. Nutritional screening: No deficits noted. Tuberculosis screening: No symptoms or risk factors identified. Assessment: 13:57 Reassessment: See triage assessment. ld1 14:45 Reassessment: Patient appears in no apparent distress at this time. No changes from ld1 previously documented assessment. Patient and/or family updated on plan of care and expected duration. Pain level reassessed. Patient is alert, oriented x 3, equal unlabored respirations, skin warm/dry/pink. Patient denies pain at this time. Vital Signs: 13:53 BP 146 / 85; Pulse 89; Resp 18; Temp 97.8(TE); Pulse Ox 100% on R/A; Weight 81.65 kg; ld1 Height 5 ft. 2 in. ; Pain 0/10; 14:45 BP 143 / 80; Pulse 83; Resp 18; Pulse Ox 100% on R/A; ld1 15:33 BP 149 / 84; Pulse 76; Resp 18; Pulse Ox 100% on R/A; ld1 13:53 Body Mass Index 32.92 (81.65 kg, 157.48 cm) ld1 13:53 Pain Scale: Adult ld1 ED Course: 13:03 Patient arrived in ED. cj3 13:03 [facility] sb4 13:03 Arthur Roche MD is Attending Physician. sb4 13:12 Margie Briscoe, JAVY is Primary Nurse. ld1 13:55 Triage completed. ld1 13:55 Arm band placed on right wrist. ld1 13:57 Patient has correct armband on for positive identification. Placed in gown. Bed in low ld1 position. Call light in reach. Side rails up X2. knuckle bender on. Pulse ox on. NIBP on. Door closed. Noise minimized. Warm blanket given. 13:57 No provider procedures requiring assistance completed. ld1 16:45 IV discontinued, intact, bleeding controlled, No redness/swelling at site. ld1 Administered Medications: 13:42 Drug: NS 0.9% IV 1000 ml IV at 1000 ml once; to be given as a bolus over 60 minutes ld1 Route: IV; Rate: 1000 ml; Site: right antecubital; 14:44 Follow up: Response: No adverse reaction; IV Status: Completed infusion; IV Intake: ld1 1000ml 15:00 Drug: NS 0.9% IV 1000 ml IV at 1000 ml once; to be given as a bolus over 60 minutes ld1 Route: IV; Rate: 1000 ml; Site: right antecubital; 16:45 Follow up: IV Status: Completed infusion; IV Intake: 1000ml ld1 16:02 Drug: Insulin Regular Human IVP 5 units IVP once {Co-Signature: bp (Rohan Browning1 RN).} Route: IVP; Site: right antecubital; 16:45 Follow up: Response: No adverse reaction ld1 Medication: 14:47 VIS not applicable for this client. ld1 Intake: 14:44 IV: 1000ml; Total: 1000ml. ld1 16:45 IV: 1000ml; Total: 2000ml. ld1 Outcome: 16:32 Discharge ordered by MD. sb4 16:45 Discharged to home ambulatory, ld1 16:45 Condition: stable 16:45 Discharge instructions given to patient, family, Instructed on discharge instructions, follow up and referral plans. medication usage, Demonstrated understanding of instructions, follow-up care, medications, Prescriptions given X 1, 16:46 Patient left the ED. ld1 Signatures: Margie Briscoe RN RN ld1 Rachael Yeager PA-C PAPradeep sb4 Risa Jones cj3 Rohan Browning RN bp Corrections: (The following items were deleted from the chart) 13:55 13:55 PMHx: "heart problems"; ld1 ld1 14:47 13:57 Vaccine Information Statement (VIS) provided today. Questions and/or concerns ld1 addressed. VIS edition date: October 06, 2024 ld1
[2024-10-06 16:49] VITALS: TEMP 97.8; O2SAT 100
[2024-10-06 16:53] VITALS: BP 149/84
[2024-10-06 17:19] LABS: Anisocytosis 2+; Blood Morphology Comment NOTED (NOT SEEN); Platelet Estimate INCR; White Blood Cell Scan OK (OK)
[2024-10-06 17:20] LABS: Hypochromasia 2+; Microcytosis 2+; Ovalocytes 1+; Poikilocytosis 1+; Polychromasia 1+
== END 2024-10-06 16:46 | disposition home or self-care (01) ==
LOC: ER 13:00
DX: E11.65 Type 2 diabetes mellitus with hyperglycemia (principal)
CPT/HCPCS: 36415; 80048; 80076; 81001; 81025; 82010; 82947; 83690; 83735; 85025; 96361; 96374; 99284; J1815; J7030

== ENCOUNTER 2025-02-11 16:54 | Emergency (ER) | payer SELFPAY ==
--- OUTSIDE RECORDS SUMMARY | 2025-02-11 16:59 | XMS REPORT | Continuity of Care Document ---
Author Name Unknown Address [address] [place] [address] Organization [facility] [place] Address [address] [place] [address] Care Team Providers Care Supportive Employment Case Manager Name Role Phone MARY KATE BOOTHE Attending Clinician Unavailable CHERYL NAFEESAlie Attending Clinician Unavailable GERMAN VASQUES Attending Clinician Unavailable KINDRA JAMES Attending Clinician Unavaila ble Mino Attending Clinician Unavailable Ngteresa_Tho Attending Clinician Unavailable RUBIN BENDER Attending Clinician UnaABDIRAHMAN Marks Attending Clinician Unavailable VINCE FELIX Attending Clinician Unavailable ESEQUIEL YBARRA Attending Clinician Unavailable MILENA YI Attending Clinician Unavaila JEYSON greenberg BA Attending Clinician Unavailable WAYNE RIVERA Attending Clinician Unavaila MARLENA Bruno Attending Clinician Unavaila JOE Diaz Attending Clinician UnavailDA Carroll Attending Clinician Unavailab LUIS Li Admitting Clinician Unavailable Shield Admitting Clinician Unavailable Ngteresa_Tho Admitting Clinician Unavailable MILENA YI Admitting Clinician Unavaila dionicio Payers Payer Name Policy Type Policy Number Effective Date Expirati on Date Source [facility] ([facility]) [id number] 2021 00:00:00 [place]) [id number] 2020 00:00:00 SOFIE Diez [id number] 2021 00:00:00 Allergies, Adverse Reactions, Alerts Allergy Name Allergy Type Status Severity Reaction(s) Onset Date Inactive Date Treating Clinician Comments Source Penicill in v Allergy to substanc e Active [facility] Zyrtec Allergy to substanc e Active [facility] Medications Ordered Medication Name Filled Medication Name Start Date Stop Date Current Medication? Ordering Clinician Indication Dosage Frequency Signature (SIG) Comments Components Source tramadol 50 mg tablet tramadol 50 mg tablet No tramadol 50 mg tablet [facility] Vital Signs Vital Name Observation Time Observation Value Comments S ource BP Systolic 2024-07-17 00:00:00 144 mm[Hg] [facility] Body Weight 2024-07-17 00:00:00 225 [lb_av] [facility] BP Diastolic 2024-07-17 00:00:00 89 mm[Hg] [facility] Height 2024-07-17 00:00:00 60.8 [in_i] [facility] BMI (Body Mass Index) 2024-07-17 00:00:00 42.8 kg/m2 [facility] Height 2024-07-08 00:00:00 60.8 [in_i] [facility] BP Diastolic 2024-07-08 00:00:00 91 mm[Hg] [facility] Body Weight 2024-07-08 00:00:00 3600 [oz_av] [facility] BMI (Body Mass Index) 2024-07-08 00:00:00 42.8 kg/m2 [facility] BP Systolic 2024-07-08 00:00:00 145 mm[Hg] [facility] Procedures Procedure Date / Time Performed Performing Clinician Source Laparoscopic Cholecystectomy 2024-07-11 00:00:00 [facility] unlisted imaging order 2024-07-09 00:00:00 [facility] Section [facility] Encounters Start Date/Time End Date/Time Encounter Type Admission Type Attending Clinicians Care Facility Care Department Encounter ID Source 2024-07-14 09:00:00 Inpatient MARY KATE KUMAR [facility] [id number] [facility] 2024-11-18 15:14:00 2024-11-19 15:05:00 Inpatient ER [facility] [id number] [facility] 2024-09-01 11:00:00 2024-09-01 11:00:00 Outpatient GERMAN VASQUES JEANIE [id number] [facility] 2024-08-25 11:00:00 2024-08-25 11:00:00 Outpatient GERMAN VASQUES JEANIE HUNT [id number] [facility] 2024-07-17 00:00:00 2024-07-17 00:00:00 Kelton James MD: [address], [address], [place] [address] , Ph. [phone] [facility] [id number] 0116 [facility] 2024-07-11 12:54:00 2024-07-11 12:54:00 Outpatient KINDRA MCKAY [facility] [id number] [facility] 2024-07-10 14:44:00 2024-07-10 14:44:00 Outpatient MARY KATE KUMAR [facility] [id number] [facility] 2024-07-08 16:21:00 2024-07-08 16:21:00 Outpatient MARY KATE KUMAR [facility] [id number] [facility] 2024-07-08 00:00:00 2024-07-08 00:00:00 Mary Kate Boothe NP: [address], [address], [place] [address] , Ph. [facility] [id number] 0107 [facility] 2021-12-19 15:15:00 2021-12-19 15:15:00 Outpatient RUBIN BENDER [id number] Jeanie Seedith 2019-09-16 20:57:00 2019-09-16 21:33:00 Emergency ER ABDIRAHMAN COTTRELL [facility] [id number] [facility] 2018-12-11 15:13:00 2018-12-11 16:30:00 Emergency TR VINCE FELIX [facility] [id number] [facility] 2016-01-23 21:55:00 2016-01-23 22:55:00 Emergency ER ESEQUIEL YBARRA [facility] [id number] [facility] 2016-01-06 15:00:00 2016-01-08 10:00:00 Inpatient ER MILENA YI [facility] [id number] [facility] 2016-01-03 19:27:00 2016-01-03 22:00:00 Emergency ER MILENA YI [facility] [id number] [facility] 2015-12-29 10:36:00 2015-12-29 10:36:00 Outpatient MILENA CASTILLO [facility] [id number] [facility] 2015-11-10 08:07:00 2015-11-10 08:07:00 Outpatient MILENA CASTILLO [facility] [id number] [facility] 2015-11-03 08:57:00 2015-11-03 08:57:00 Outpatient MILENA CASTILLO [facility] [id number] [facility] 2015-10-20 01:50:00 2015-10-20 04:07:00 Emergency ER JEYSON SCHOFIELD [facility] [id number] [facility] 2015-06-14 15:47:00 2015-06-14 15:47:00 Outpatient MILENA CASTILLO [facility] [id number] [facility] 2013-01-28 22:35:00 2013-01-29 01:17:00 Emergency ER WAYNE RIVERA [facility] [id number] [facility] 2011-07-18 13:42:00 2011-07-18 17:11:00 Emergency ER MARLENA LIMA [facility] [id number] [facility] 2008-01-08 16:45:00 2008-01-08 20:40:00 Emergency ER JOE MARTINEZ [facility] [id number] [facility] 2007-12-16 22:32:00 2007-12-16 22:32:00 Emergency ER JOE MARTINEZ [facility] [id number] [facility] 2005-02-25 11:22:00 2005-02-25 16:17:00 Emergency ER DA JAMES [facility] [id number] [facility] 2003-04-01 15:00:00 2003-04-01 19:00:00 Emergency ER DA JAMES [facility] [id number] [facility] Results Test Description Test Time Test Comments Results Result Co mments Source [id number] 12:35:00* Test Item Value Reference Range Interpretation [...] c ode = urine culture added?) NO [facility] 2000 panel - Serum [...] alkaline phosphatase, total) 167 U/L 35-105 H [facility]2025-01-10 11:47:00* Test Item Value Reference Range Interpretation Comme nts lipase (test code = lipase) 30 U/L 13-60 [facility] W Auto Differential panel - [id number] 11:29:00 * Test Item Value Reference Range [...] NRBC# (test code = NRBC#) 0 K/uL [facility] 2000 panel - [id number] 00:00:00* Test Item Value Reference Range Interpretation Comme nts Hepatitis A virus IgM Ab [Presence] in Serum or Plasma by Immunoassay (test code = 06703-3) Negative negative Hepatitis B virus surface Ag [Presence] in Serum or Plasma by Immunoassay (test code = 5196-1) Negative negative Hepatitis B virus core IgM A b [Presence] in Serum or Plasma by Immunoassay (test code = 00897-8) Negative negative Hepatitis C virus IgG Ab [Presence] in Serum or Plasma by Immunoassay (test code = 07084-9) Non Reactive non reactive Hepatitis C virus Ab [Presen ce] in Serum or Plasma by Immunoassay (test code = 65010-5) [facility] [Mass/volume] in Serum [...] code = 2502-3) 4 % 15-55 L [facility]Cobalamin (Vitamin B12) and folate panel - Serum 2024-07-11 00:00:00* Test Item Value Reference Range Interpretation Comme nts Cobalamin (Vitamin B12) [Mass/volume] in Serum or Plasma (test code = 2132-9) 229 pg/mL 232-1245 L Folate [Mass/volume] in Seru m or Plasma (test code = 2284-8) 3.7 NG/mL >3.0 [facility]rit[facility] [Mass/volume] in Serum or [id number] 00:00:00* Test Item Value Reference Range Interpretation Comme nts Ferritin [Mass/volume] in Se rum or Plasma (test code = 2276-4) 7 NG/mL 15-150 L [facility] blood [id number] 14:33:00* Test Item Value Reference Range Interpretation Comme nts [facility] blood collection (test code = [facility] blood collection) [facility] pres id [id number] 09:23:00* Test Item Value Reference Range Interpretation Comme nts culture,urine (test code = culture,urine) SCANT SKIN CHRIS PRESENT. NO PATHOGEN PRESENT AT 2 DAYS. [facility] 2000 panel - Serum [...] alkaline phosphatase, total) 161 U/L 35-105 H [facility] Hospitallipid panel, [id number] 17:30:00* Test Item Value Reference Range Interpretation [...] (test code = cholesterol risk ratio) 4.333 [facility] HospitalHemoglobin A1c [Mass/volume] in [id number] 17:28:00 * Test Item Value Reference Range Interpretation Comme nts Hemoglobin A1c/Hemoglobin.to gracie in Blood (test code = 4548-4) 6.3 % 4.0-6.0 H [facility] W Auto Differential panel - [id number] 17:22:00 * Test Item Value Reference Range [...] NRBC# (test code = NRBC#) 0 K/uL [facility] [id number] 17:15:00* Test Item Value Reference Range Interpretation [...] c ode = urine culture added?) YES [facility] HospitalUrinalysis complete W Reflex Culture panel - Urine [...] code = casts,urine) 0-2 none detect A [facility] HospitalThyrotropin [Units/volume] in Serum or [id number] 00:00:00* Test Item Value Reference Range Interpretation Comme nts thyroid stimulating hormone L (test code = thyroid stimulating hormone L) 2.59 uIU/mL 0.36-3.74 [facility]
--- NOTE | 2025-02-11 20:58 | ER ---
Nurse's Notes [facility] Name: Leonie Eaton Age: 34 yrs Sex: Female : 1990 Arrival Date: 02/11/2025 Time: 16:54 Bed IW10 Private MD: Diagnosis: Presentation: 02/11 17:11 Chief complaint: Patient states: SHORTNESS OF BREATH, DIZZINESS, SLEEPY, BRAIN FOG X 3 dd2 DAYS AND FELT LIKE PASSING OUT BEFORE COMING TO THE ER. PT ALSO REPORTS A 'BOIL' ON LT UPPER THIGH. Coronavirus screen: At this time, the client does not indicate any symptoms associated with coronavirus-19. Ebola Screen: No symptoms or risks identified at this time. Initial Sepsis Screen: Does the patient meet any 2 criteria? No. Patient's initial sepsis screen is negative. Does the patient have a suspected source of infection? No. Patient's initial sepsis screen is negative. Risk Assessment: Do you want to hurt yourself or someone else? Patient reports no desire to harm self or others. Onset of symptoms was February 08, 2025. 17:11 Method Of Arrival: Ambulatory dd2 17:11 Acuity: VALERY 3 dd2 Triage Assessment: 17:15 General: Appears in no apparent distress. Behavior is cooperative, appropriate for age, dd2 anxious. Pain: Complains of pain in left upper thigh. Respiratory: Reports shortness of breath at rest on exertion Onset: The symptoms/episode began/occurred X 3 DAYS AGO, the patient has mild shortness of breath. 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 - Infectious Disease History:: Denies. - Social history:: Smoking status: Patient denies any tobacco usage or history of. Assessment: 19:06 General: pt called from lobby. no response. lg3 19:31 General: pt called from lobby. no response. lg3 19:42 General: pt called from lobby. no response. provider notified . lg3 Vital Signs: 17:11 BP 158 / 104; Pulse 98; Resp 18; Temp 97.8; Pulse Ox 100% on R/A; Pain 5/10; dd2 17:11 Pain Scale: Adult dd2 ED Course: 16:59 Patient arrived in ED. mr 17:01 Dawit Garcia PA is PHCP. cp 17:01 Prakash Briscoe DO is Attending Physician. cp 17:14 Triage completed. dd2 17:18 Arm band placed on right wrist. dd2 Administered Medications: No medications were administered Outcome: 20:57 Patient left the ED. lg3 Signatures: Carl Manisha, Reg Reg mr Dawit Garcia PA PA cp Irma Pacheco RN RN lg3 RAMA YEBOAH RN RN dd2 Corrections: (The following items were deleted from the chart) 17:18 17:11 BP 158 / 104; Pulse 109bpm; Resp 18bpm; Pulse Ox 100% RA; Temp 97.8F; Pain 5/10, dd2 Adult; dd2 17:20 17:18 LMP N/A - control method, Not dd2 dd2
--- NOTE | 2025-02-11 20:58 | EDPHYS ---
Physician Documentation [facility] Name: Leonie Eaton Age: 34 yrs Sex: Female : 1990 Arrival Date: 02/11/2025 Time: 16:54 Bed IW10 Private MD: ED Physician Prakash Briscoe HPI: 02/11 17:30 This 34 yrs old Female presents to ER via Ambulatory with complaints of Shortness Of cp Breath, Passed Out Prior To Arrival. 17:30 The patient has shortness of breath at rest. cp 17:30 Onset: The symptoms/episode began/occurred 3 day(s) ago. Associated signs and symptoms: cp Pertinent positives: dizziness, near syncope, Pertinent negatives: chest pain, fever. Severity of symptoms: in the emergency department the symptoms are unchanged despite home interventions. 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 - Infectious Disease History:: Denies. - Social history:: Smoking status: Patient denies any tobacco usage or history of. ROS: 17:35 Constitutional: Negative for body aches, chills, fever, poor PO intake, cp 17:35 Eyes: Negative for injury, pain, redness, and discharge, cp 17:35 ENT: Negative for drainage from ear(s), ear pain, sore throat, difficulty swallowing, difficulty handling secretions, 17:35 Cardiovascular: Positive for palpitations, Negative for chest pain, 17:35 Respiratory: Positive for shortness of breath, Negative for cough, wheezing, 17:35 Abdomen/GI: Negative for abdominal pain, vomiting, diarrhea, constipation, black/tarry stool, rectal bleeding, 17:35 : Negative for urinary symptoms, vaginal bleeding, 17:35 Neuro: Positive for dizziness, near syncope, Negative for altered mental status, headache, syncope, Exam: 17:40 Head/Face: Normocephalic, atraumatic. cp 17:40 Constitutional: The patient appears in no acute distress, alert, awake, non-diaphoretic, non-toxic, well developed, well nourished, overweight 17:40 Eyes: Periorbital structures: appear normal, Conjunctiva: normal, Sclera: no appreciated abnormality, Lids and lashes: appear normal, bilaterally, 17:40 ENT: External ear(s): are unremarkable, Nose: is normal, Mouth: Lips: moist, Oral mucosa: moist, Posterior pharynx: Airway: no evidence of obstruction, patent, 17:40 Cardiovascular: Rate: tachycardic, Rhythm: regular, Edema: is not appreciated, JVD: is not appreciated, 17:40 Respiratory: the patient does not display signs of respiratory distress, Respirations: normal, no use of accessory muscles, no retractions, labored breathing, is not present, Breath sounds: are clear throughout, no decreased breath sounds, no stridor, no wheezing, 17:40 Neuro: Orientation: to person, place \T\ time. Mentation: is normal, Motor: moves all fours, strength is normal, Gait: is steady, Vital Signs: 17:11 BP 158 / 104; Pulse 98; Resp 18; Temp 97.8; Pulse Ox 100% on R/A; Pain 5/10; dd2 17:11 Pain Scale: Adult dd2 MDM: 17:09 Medical Screening Exam initiated 17:30 Data reviewed: vital signs. 02/11 17:26 Order name: Cardiac monitoring 02/11 17:26 Order name: EKG - Nurse/Tech 02/11 17:26 Order name: IV Saline Lock 02/11 17:26 Order name: Labs collected and sent 02/11 17:26 Order name: O2 Per Protocol 02/11 17:26 Order name: O2 Sat Monitoring Administered Medications: No medications were administered Disposition: 18:58 I was immediately available on-site in the Emergency Department for consultation in the ms3 care of the patient. Disposition Summary: 02/11/25 20:57 Eloped Notes: Reason: unknown lg3 Signatures: Dispatcher [employer] EDMS Dawit Garcia PA PA cp Able, Lacie, RN RN lg3 Prakash Briscoe DO DO ms3 RAMA YEBOAH RN RN dd2 Corrections: (The following items were deleted from the chart) 17: 17:26 BASIC METABOLIC PANEL+C.LAB.BRZ ordered. EDMS EDMS 17:26 CBC+H.LAB.BRZ ordered. EDMS EDMS 17:26 D-DIMER+COAG.LAB.BRZ ordered. EDMS EDMS 17:26 HEPATIC FUNCTION+C.LAB.BRZ ordered. EDMS EDMS 17:26 MAGNESIUM+C.LAB.BRZ ordered. EDMS EDMS 17:26 PROBNP+C.LAB.BRZ ordered. EDMS EDMS 17:26 PROTIME (+INR)+COAG.LAB.BRZ ordered. EDMS EDMS 17:26 Troponin High Sensitivity+C.LAB.BRZ ordered. EDMS EDMS 17:26 UA Rfx Durga Cult if indicated+U.LAB.BRZ ordered. EDMS EDMS 17:26 Test, Urine+UC.LAB.BRZ ordered. EDMS EDMS 17:26 Chest Single View+RAD.RAD.BRZ ordered. EDMS EDMS 17:26 URINE DRUG SCREEN+UC.LAB.BRZ ordered. EDMS EDMS 19:02/10 17:40 Constitutional: The patient appears in no acute distress, alert, awake, cp non-diaphoretic, non-toxic, well developed, well nourished, overweight cp / 19:10 12 17:40 Head/Face: Normocephalic, atraumatic. cp cp 02/11 19:02/10 17:40 Eyes: Periorbital structures: appear normal, Conjunctiva: normal, Sclera: cp no appreciated abnormality, Lids and lashes: appear normal, bilaterally, cp 02/11 19:02/10 17:40 ENT: External ear(s): are unremarkable, Nose: is normal, Mouth: Lips: cp moist, Oral mucosa: moist, Posterior pharynx: Airway: no evidence of obstruction, patent, cp / 19:10 02/10 17:40 Cardiovascular: Rate: tachycardic, Rhythm: regular, Edema: is not cp appreciated, JVD: is not appreciated, cp / 19:02/10 17:40 Respiratory: the patient does not display signs of respiratory distress, cp Respirations: normal, no use of accessory muscles, no retractions, labored breathing, is not present, Breath sounds: are clear throughout, no decreased breath sounds, no stridor, no wheezing, cp 02/11 19:10 02/10 17:40 Neuro: Orientation: to person, place \T\ time. Mentation: is normal, Motor: cp moves all fours, strength is normal, Gait: is steady, cp 02/12 19:38 02/11 20:57 before being seen by provider lg3 cp
[2025-02-11 21:32] VITALS: BP 158/104; TEMP 97.8; O2SAT 100
== END 2025-02-11 20:57 | disposition left against medical advice (07) ==
LOC: ER 16:54
DX: Z53.21 Procedure and treatment not carried out due to patient leaving prior to being seen by health care provider (principal)
CPT/HCPCS: 99281

== ENCOUNTER 2025-04-16 11:01 | Emergency (ER) | payer OTHER ==
--- OUTSIDE RECORDS SUMMARY | 2025-04-16 11:04 | XMS REPORT | Continuity of Care Document ---
Author Name Unknown Address [address] [facility] [place] [address] [facility] [place] Address [address] [facility] [place] [address] Care Team Providers Care Broommaker Name Role Phone TL MARY KATE Quintin Attending Clinician Unavailable CHERYL, NAFEESA Attending Clinician Unavailable GERMAN VASQUES Attending Clinician [...] Admitting Clinician Unavailable Shield Admitting Clinician Unavailable Nguyen_Tho Admitting Clinician Unavailable MILENA YI Admitting Clinician Unavaila dionicio Payers Payer Name Policy Type Policy Number Effective Date Expirati on Date Source [facility] [id number] 2021 00:00:00 [place] [id number] 2020 00:00:00 [place] 2 [id number] 2021 00:00:00 Allergies, Adverse Reactions, Alerts Allergy [...] Group BP Diastolic 2024-07-17 00:00:00 89 mm[Hg] [facility] Height 2024-07-17 00:00:00 60.8 [in_i] [facility] BMI (Body Mass Index) 2024-07-17 00:00:00 42.8 kg/m2 [facility] Height 2024-07-08 00:00:00 60.8 [in_i] [facility] BP Diastolic 2024-07-08 00:00:00 91 mm[Hg] [facility] Body Weight 2024-07-08 00:00:00 3600 [oz_av] [facility] BMI (Body Mass Index) 2024-07-08 00:00:00 42.8 kg/m2 [facility] BP Systolic 2024-07-08 00:00:00 145 mm[Hg] [facility] Procedures Procedure Date / Time Performed Performing Clinician Source Laparoscopic Cholecystectomy 2024-07-11 00:00:00 [facility] unlisted imaging order 2024-07-09 00:00:00 [facility] Encounters Start Date/Time End Date/Time Encounter Type Admission Type Attending Clinicians Care Facility Care Department Encounter ID Source 2024-07-14 09:00:00 Inpatient MARY KATE KUMAR [facility] [id number] [facility] 2024-11-18 15:14:00 2024-11-19 15:05:00 Inpatient ER [facility] [id number] [facility] 2024-09-01 11:00:00 2024-09-01 11:00:00 Outpatient GERMAN VASQUES JEANIE [id number] [facility] 2024-08-25 11:00:00 2024-08-25 11:00:00 Outpatient CAPRICE GERMAN HUNT [id number] [facility] 2024-07-17 00:00:00 2024-07-17 00:00:00 Kelton James MD: [address], [address], [place] [address] , Ph. [phone] [facility] General surgery [id number] [facility] 2024-07-11 12:54:00 2024-07-11 12:54:00 Outpatient KINDRA MCKAY [facility] [id number] [facility] 2024-07-10 14:44:00 2024-07-10 14:44:00 Outpatient MARY KATE KUMAR [facility] [id number] [facility] 2024-07-08 16:21:00 2024-07-08 16:21:00 Outpatient MARY KATE KUMAR [facility] [id number] [facility] 2024-07-08 00:00:00 2024-07-08 00:00:00 Mary Kate Herzog NP: [address], [address], [place] [address] , Ph. [facility] Family Practice [id number] [facility] 2021-12-19 15:15:00 2021-12-19 15:15:00 Outpatient RUBIN BENDER JEANIE [id number] Jaenie edith 2019-09-16 20:57:00 2019-09-16 21:33:00 Emergency ER ABDIRAHMAN COTTRELL [facility] [id number] [facility] 2018-12-11 15:13:00 2018-12-11 16:30:00 Emergency TR VINCE FELIX [facility] [id number] [facility] 2016-01-23 21:55:00 2016-01-23 22:55:00 Emergency ER ESEQUIEL YBARRA [facility] [id number] [facility] 2016-01-06 15:00:00 2016-01-08 10:00:00 Inpatient ER MILENA YI [facility] [id number] [facility] 2016-01-03 19:27:00 2016-01-03 22:00:00 Emergency ER MILENA YI [facility] [id number] [facility] 2015-12-29 10:36:00 2015-12-29 10:36:00 Outpatient MILENA CASTILLO [facility] [id number] [facility] 2015-11-10 08:07:00 2015-11-10 08:07:00 Outpatient MILENA CASTILLO [facility] [id number] [facility] 2015-11-03 08:57:00 2015-11-03 08:57:00 Outpatient MILENA CASTILLO [facility] [id number] [facility] 2015-10-20 01:50:00 2015-10-20 04:07:00 Emergency ER JEYSON SCOHFIELD [facility] [id number] [facility] 2015-06-14 15:47:00 2015-06-14 15:47:00 Outpatient MILENA CASTILLO [facility] [id number] [facility] 2013-01-28 22:35:00 2013-01-29 01:17:00 Emergency ER WAYNE RIVERA [facility] [id number] [facility] 2011-07-18 13:42:00 2011-07-18 17:11:00 Emergency ER MARLENA LIMA [facility] [id number] [facility] 2008-01-08 16:45:00 2008-01-08 20:40:00 Emergency ER JOE MARTINEZ [facility] [id number] [facility] 2007-12-16 22:32:00 2007-12-16 22:32:00 Emergency ER JOE MARTINEZ [facility] [id number] [facility] 2005-02-25 11:22:00 2005-02-25 16:17:00 Emergency ER DA JAMES [facility] [id number] [facility] 2003-04-01 15:00:00 2003-04-01 19:00:00 Emergency ER DA JAMES [facility] [id number] [facility] Results Test Description Test Time Test Comments Results Result Co mments Source [facility] [id number] 12:35:00* Test Item Value Reference Range Interpretation [...] c ode = urine culture added?) NO [facility] CenterCom[facility] 2000 panel - Serum or Plasma [...] alkaline phosphatase, total) 167 U/L 35-105 H [facility]lipase2025-01-10 11:47:00* Test Item Value Reference Range Interpretation Comme nts lipase (test code = lipase) 30 U/L 13-60 [facility] W Auto Differential panel - [id number] 11:29:00 * Test Item Value Reference Range [...] NRBC# (test code = NRBC#) 0 K/uL [facility] CenterAc[facility] hepatitis 2000 panel - [id number] 00:00:00* Test Item Value Reference Range Interpretation Comme nts Hepatitis A virus IgM Ab [Presence] in Serum or Plasma by Immunoassay (test code = 97046-8) Negative negative Hepatitis B virus surface Ag [Presence] in Serum or Plasma by Immunoassay (test code = 5196-1) Negative negative Hepatitis B virus core IgM A b [Presence] in Serum or Plasma by Immunoassay (test code = 71263-7) Negative negative Hepatitis C virus IgG Ab [Presence] in Serum or Plasma by Immunoassay (test code = 60608-1) Non Reactive non reactive Hepatitis C virus Ab [Presen ce] in Serum or Plasma by Immunoassay (test code = 09957-7) Comment [facility] Center[facility] binding capacity [Mass/volume] in Serum or Plasma [...] code = 2502-3) 4 % 15-55 L [facility] CenterCobalamin (Vitamin B12) and folate panel - Serum 2024-07-11 00:00:00* Test Item Value Reference Range Interpretation Comme nts Cobalamin (Vitamin B12) [Mass/volume] in Serum or Plasma (test code = 2132-9) 229 pg/mL 232-1245 L Folate [Mass/volume] in Seru m or Plasma (test code = 2284-8) 3.7 NG/mL >3.0 [facility] CenterFerritin [Mass/volume] in Serum or [id number] 00:00:00* Test Item Value Reference Range Interpretation Comme nts Ferritin [Mass/volume] in Se rum or Plasma (test code = 2276-4) 7 NG/mL 15-150 L [facility] Centerlabco blood [id number] 14:33:00* Test Item Value Reference Range Interpretation Comme nts [facility] blood collection (test code = [facility] blood collection) [facility] pres id [id number] 09:23:00* Test Item Value Reference Range Interpretation Comme nts culture,urine (test code = culture,urine) SCANT SKIN CHRIS PRESENT. NO PATHOGEN PRESENT AT 2 DAYS. [facility] CenterComprehensive metabolic 2000 panel - Serum or Plasma [...] alkaline phosphatase, total) 161 U/L 35-105 H [facility] Centerlipid panel, [id number] 17:30:00* Test Item Value Reference Range Interpretation [...] (test code = cholesterol risk ratio) 4.333 [facility] CenterHemoglobin A1c [Mass/volume] in [id number] 17:28:00 * Test Item Value Reference Range Interpretation Comme nts Hemoglobin A1c/Hemoglobin.to gracie in Blood (test code = 4548-4) 6.3 % 4.0-6.0 H [facility] W Auto Differential panel - [id number] 17:22:00 * Test Item Value Reference Range [...] NRBC# (test code = NRBC#) 0 K/uL [facility] [id number] 17:15:00* Test Item Value Reference Range Interpretation [...] c ode = urine culture added?) YES [facility] CenterUrinalysis complete W Reflex Culture panel - Urine [...] code = casts,urine) 0-2 none detect A [facility] CenterThyrotropin [Units/volume] in Serum or [id number] 00:00:00* Test Item Value Reference Range Interpretation Comme nts thyroid stimulating hormone L (test code = thyroid stimulating hormone L) 2.59 uIU/mL 0.36-3.74 [facility]
[2025-04-16] MEDS ORDERED: IBUPROFEN 400 MG TAB ONE (11:23)
[2025-04-16] MEDS ORDERED: ACETAMINOPHEN 500 MG TAB ONE (11:23)
[2025-04-16] MEDS ORDERED: LIDOCAINE 1% MPF 5 ML VIAL ONE (11:31)
[2025-04-16] MEDS ORDERED: NA CHLORIDE 0.9% 1,000 ML ONE (11:31)
[2025-04-16 12:06] LABS: Urine Culture Reflex Order REFLEXED; Urine Microscopic Reflex YN ORDER UMIC; Urine Yeast (Budding) Trace /HPF (None Seen)
[2025-04-16] MEDS ORDERED: CEFTRIAXONE 1000 MG/VIAL ONE (13:01)
--- NOTE | 2025-04-16 13:06 | EDPHYS ---
Physician Documentation [facility] Name: Leonie Eaton Age: 35 yrs Sex: Female : 1990 Arrival Date: 04/16/2025 Time: 11:01 Bed 20 Private MD: ED Physician Dawit Rodney HPI: 04/16 15:49 This 35 yrs old Female presents to ER via Ambulatory with complaints of dr5 Abscess, Shortness Of Breath. 15:49 The patient presents with an abscess of the groin. Onset: The symptoms/episode dr5 began/occurred 2 day(s) ago. Patient is a 35-year-old female with history of anemia, asthma, diabetes coming in with boil to suprapubic area for the past 2 days. Patient reports that it had mild drainage and painful to touch. Patient also reports intermittent shortness of breath for the past couple months that she attributes to being anxious about cutting into the abscess. Patient denies chest pain, shortness of breath, abdominal pain, nausea, vomiting or diarrhea. Patient does endorse urinary frequency as well as dysuria.. 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 - Infectious Disease History:: Denies. - Social history:: Smoking status: Patient denies any tobacco usage or history of. ROS: 15:49 Constitutional: as per hpi dr5 Exam: 15:49 Constitutional: This is a well developed, well nourished patient who is awake, alert, dr5 and in no acute distress. Head/Face: Normocephalic, atraumatic. Eyes: Pupils equal round and reactive to light, extra-ocular motions intact. Lids and lashes normal. Conjunctiva and sclera are non-icteric and not injected. Cornea within normal limits. Periorbital areas with no swelling, redness, or edema. Neck: Trachea midline, no thyromegaly or masses palpated, and no cervical lymphadenopathy. Supple, full range of motion without nuchal rigidity, or vertebral point tenderness. No Meningismus. Chest/axilla: Normal chest wall appearance and motion. Nontender with no deformity. No lesions are appreciated. Cardiovascular: Regular rate and rhythm with a normal S1 and S2. Normal PMI, no JVD. No pulse deficits. Respiratory: Lungs have equal breath sounds bilaterally, clear to auscultation. No rales, rhonchi or wheezes noted. No increased work of breathing, no retractions or nasal flaring. Back: No spinal tenderness. No costovertebral tenderness. Full range of motion. Skin: Warm, dry with normal turgor. Normal color with no rashes, no lesions, and no evidence of cellulitis. MS/ Extremity: Pulses equal, no cyanosis. Neurovascular intact. Full, normal range of motion. Neuro: Awake and alert, GCS 15, oriented to person, place, time, and situation. Cranial nerves II-XII grossly intact. Motor strength 5/5 in all extremities. Sensory grossly intact. Cerebellar exam normal. Normal gait. 15:49 : Pelvic Exam: External exam: Abscess noted to suprapubic area of groin., JAVY Webb present during initial exam. JAVY Ruiz present during I\T\D. . Vital Signs: 11:44 BP 122 / 72; Pulse 110; Resp 18; Temp 100.1; Pulse Ox 99% ; Weight 78.02 kg; Height 4 kb4 ft. 9 in. ; Pain 5/10; 13:07 BP 122 / 63; Pulse 80; Resp 18; Pulse Ox 99% on R/A; kb4 11:44 Body Mass Index 37.22 (78.02 kg, 144.78 cm) kb4 11:44 Pain Scale: Adult kb4 Procedures: 15:49 I \T\ D: Incision and drainage was performed for an abscess of the groin Prepped with dr5 alcohol, Anesthetized with 2 ml's 1% Lidocaine. Incised with #10 blade. Drained moderate amount purulent fluid. bloody fluid. Dressing: non-Adherent dressing, the patient tolerated the procedure well. MDM: 11:06 Medical Screening Exam initiated dr5 15:49 Differential diagnosis: abscess, allergic reaction, cellulitis, insect bite. dr5 Differential diagnosis: UTI. Data reviewed: vital signs, nurses notes. Data reviewed: lab test result(s), urinalysis, bacteruria. Consideration of Admission/Observation Escalation of care including admission/observation considered. Admission considered patient found to have streaking or abscess down to vaginal area.. I considered the following discharge prescriptions or medication management in the emergency department I discussed and recommended Over The Counter medications, Medications were administered in the Emergency Department. See MAR. Test considered but Not performed: Ultrasound Ultrasound considered but not completed due to patient having superficial abscess. Historians other than the Patient: Family Member: . Care significantly affected by the following chronic conditions: Diabetes, Anemia, Asthma. Care significantly affected by the following Social Determinants of Health: Poor access to healthcare and/or lack of insurance, Poor access to transportation, Problems related to employment. Counseling: I had a detailed discussion with the patient and/or guardian regarding the historical points, exam findings, and any diagnostic results supporting the discharge/admit diagnosis, the presence of at least one elevated blood pressure reading (>120/80) during this emergency department visit, lab results, the need for outpatient follow up, for definitive care, a family practitioner, to return to the emergency department if symptoms worsen or persist or if there are any questions or concerns that arise at home. Medication response: Rocephin, NS. Response to treatment: the patient's symptoms have markedly improved after treatment, the patient is now symptom free, No reaction to rocephin. Special discussion: I discussed with the patient/guardian in detail that at this point there is no indication for admission to the hospital. It is understood, however, that if the symptoms persist or worsen the patient needs to return immediately for re-evaluation. Based on the history and exam findings, there is no indication for further emergent testing or inpatient evaluation. I discussed with the patient/guardian the need to see the primary care provider for further evaluation of the symptoms. ED course: Rocephin given for urinary tract infection as well as abscess. Incision and drainage completed with relief of symptoms and pain. All questions answered. Recommended patient increase hydration, alternate Tylenol Motrin as needed. Recommend patient follow-up primary care doctor. All question answered. Strict ER precautions given.. 04/16 11:32 Order name: UA Rfx Durga Cult if indicated; Complete Time: 12:17 dr5 04/16 11:32 Order name: Test, Urine; Complete Time: 12:17 dr5 04/16 12:10 Order name: Urine Culture EDTX 04/16 11:31 Order name: Incision \T\ Drainage Setup; Complete Time: 11:54 dr5 04/16 11:31 Order name: IV Start; Complete Time: 11:33 dr5 EC: Rate is 102 beats/min. Rhythm is regular. QRS [place] is Normal. [place] interval is normal at dr5 116 msec. QRS interval is normal at 102 msec. QT interval is normal at 354 msec. Clinical impression: Sinus tachycardia and No evidence of ischemia. Administered Medications: 11:39 Drug: NS 0.9% IV 1000 ml IV at 1000 ml once; to be given as a bolus over 60 minutes kb4 Route: IV; Rate: 1000 ml; Site: right antecubital; 12:56 Follow up: Response: No adverse reaction kb4 13:16 Follow up: IV Status: Completed infusion kb4 11:39 Drug: Ibuprofen PO 800 mg PO once Route: PO; kb4 12:56 Follow up: Response: No adverse reaction kb4 11:39 Drug: Acetaminophen PO 1000 mg PO once Route: PO; kb4 12:56 Follow up: Response: No adverse reaction kb4 12:56 Drug: Lidocaine Infiltration (1 %) 5 mg Infiltration once Route: Infiltration; kb4 12:56 Follow up: Response: No adverse reaction kb4 13:07 Drug: Rocephin IV 1 grams IV at per protocol once; Given slow IV push per pharmacy kb4 instructions Route: IV; Rate: per protocol; Site: right antecubital; 13:16 Follow up: Response: No adverse reaction kb4 13:16 Follow up: IV Status: Completed infusion kb4 Disposition Summary: 04/16/25 13:05 Discharge Ordered Notes: Location: Home dr5 Condition: Stable dr5 Diagnosis - UTI/ Urinary tract infection, site not specified dr5 - Cutaneous abscess of groin dr5 Followup: dr5 - With: Emergency Department - When: As needed - Reason: Worsening of condition Followup: dr5 - With: Private Physician - When: 1 - 2 days - Reason: Recheck today's complaints, Continuance of care, Re-evaluation by your physician Discharge Instructions: - Discharge Summary Sheet dr5 - Skin Abscess dr5 - Urinary Tract Infection, Adult, [id number] dr5 - Incision and Drainage, Care After dr5 Forms: - Medication Reconciliation Form dr5 - Antibiotic Education dr5 - Patient Portal Instructions dr5 - Leadership Thank You Letter dr5 Prescriptions: - Cephalexin 500 mg Oral Capsule - take 1 capsule ORAL route every 12 hours for 10 days; 20 capsule; Refills: 0, dr5 Product Selection Permitted - Clotrimazole 3 Day 2 % Vaginal cream - insert 1 applicatorful VAGINAL route At bedtime for 3 days; 3 application; dr5 Refills: 0, Product Selection Permitted Addendum: 04/18/2025 07:24 Co-signature as Attending Physician, Dawit Rodney MD I agree with the assessment and c ramirez plan of care. Signatures: Dispatcher [employer] EDMS Dawit Rodney MD MD cha Lewis, Lynsay, RN RN ll1 Stanley Lee, DAIRY FARM WORKER-C DAIRY FARM WORKER-Cdr5 Tracey Bowens RN RN kb4 Corrections: (The following items were deleted from the chart) 04/16 11:32 11:32 UA Rfx Durga Cult if indicated+U.LAB.BRZ ordered. EDMS EDMS 11:32 11:32 Test, Urine+UC.LAB.BRZ ordered. EDMS EDMS
--- NOTE | 2025-04-16 13:06 | ER ---
Nurse's Notes [facility] Name: Leonie Eaton Age: 35 yrs Sex: Female : 1990 Arrival Date: 04/16/2025 Time: 11:01 Bed 20 Private MD: Diagnosis: UTI/ Urinary tract infection, site not specified;Cutaneous abscess of groin Presentation: 04/16 11:44 Chief complaint: Patient states: pt reports boil in groin area, SOB and high heart kb4 rate. Coronavirus screen: At this time, unable to obtain information related to travel outside the [place] Ebola Screen: No symptoms or risks identified at this time. Initial Sepsis Screen: Does the patient meet any 2 criteria? Temp <36.0*C (96.8*F)) or > 38.3*C (100.9*F). HR > 90 bpm. Yes Does the patient have a suspected source of infection? If YES to both, name of provider notified: Stanley DUMONT-Og. Risk Assessment: Do you want to hurt yourself or someone else? Patient reports no desire to harm self or others. Onset of symptoms was April 10, 2025. 11:44 Method Of Arrival: Ambulatory kb4 11:44 Acuity: VALERY 3 kb4 Triage Assessment: 11:44 General: Appears in no apparent distress. General:. Respiratory: Reports shortness of kb4 breath on exertion Onset: The symptoms/episode began/occurred x3d, the patient has moderate shortness of breath. 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 - Infectious Disease History:: Denies. - Social history:: Smoking status: Patient denies any tobacco usage or history of. Screenin:54 [facility] ED Fall Risk Assessment (Adult) History of falling in the last 3 months, kb4 including since admission No falls in past 3 months (0 pts) Confusion or Disorientation No (0 pts) Intoxicated or Sedated No (0 pts) Impaired Gait No (0 pts) Mobility Assist Device Used No (0 pt) Altered Elimination No (0 pt) Score/Fall Risk Level 0 - 2 = Low Risk. Abuse screen: Denies threats or abuse. Denies injuries from another. Nutritional screening: No deficits noted. Tuberculosis screening: No symptoms or risk factors identified. Assessment: 11:39 General: Appears in no apparent distress. comfortable, Behavior is calm, cooperative. kb4 Pain: Complains of pain in groin. Cardiovascular: Rhythm is regular. Respiratory: Airway is patent Respiratory effort is even, unlabored, Respiratory pattern is regular, symmetrical, Breath sounds are clear bilaterally. GI: Abdomen is round. : boil to groin region. EENT: No signs and/or symptoms were reported regarding the EENT system. Musculoskeletal: No deficits noted. 11:49 Reassessment: Patient and/or family updated on plan of care and expected duration. Pain kb4 level reassessed. Patient is alert, oriented x 3, equal unlabored respirations, skin warm/dry/pink. 13:07 Reassessment: Patient and/or family updated on plan of care and expected duration. Pain kb4 level reassessed. Patient is alert, oriented x 3, equal unlabored respirations, skin warm/dry/pink. Vital Signs: 11:44 BP 122 / 72; Pulse 110; Resp 18; Temp 100.1; Pulse Ox 99% ; Weight 78.02 kg; Height 4 kb4 ft. 9 in. ; Pain 5/10; 13:07 BP 122 / 63; Pulse 80; Resp 18; Pulse Ox 99% on R/A; kb4 11:44 Body Mass Index 37.22 (78.02 kg, 144.78 cm) kb4 11:44 Pain Scale: Adult kb4 ED Course: 11:04 Patient arrived in ED. al6 11:04 [facility]C [facility] dr5 11:04 Dawit Rodney MD is Attending Physician. dr5 11:06 Arm band placed on Patient placed in an exam room, on a stretcher. ll1 11:08 Tracey Bowens, JAVY is Primary Nurse. kb4 11:44 EKG completed in triage. Results shown to MD. kb4 11:48 Triage completed. kb4 11:54 Patient has correct armband on for positive identification. Placed in gown. Bed in low kb4 position. Call light in reach. Side rails up X 1. 11:54 Inserted saline lock: 20 gauge in right antecubital area, using aseptic technique. kb4 Blood collected. Flushed with 10 mL NS. 13:16 No provider procedures requiring assistance completed. IV discontinued, intact, kb4 bleeding controlled, No redness/swelling at site. Pressure dressing applied. 13:17 Provided Education on: infection prevention, ABX use, wound care. kb4 Administered Medications: 11:39 Drug: NS 0.9% IV 1000 ml IV at 1000 ml once; to be given as a bolus over 60 minutes kb4 Route: IV; Rate: 1000 ml; Site: right antecubital; 12:56 Follow up: Response: No adverse reaction kb4 13:16 Follow up: IV Status: Completed infusion kb4 11:39 Drug: Ibuprofen PO 800 mg PO once Route: PO; kb4 12:56 Follow up: Response: No adverse reaction kb4 11:39 Drug: Acetaminophen PO 1000 mg PO once Route: PO; kb4 12:56 Follow up: Response: No adverse reaction kb4 12:56 Drug: Lidocaine Infiltration (1 %) 5 mg Infiltration once Route: Infiltration; kb4 12:56 Follow up: Response: No adverse reaction kb4 13:07 Drug: Rocephin IV 1 grams IV at per protocol once; Given slow IV push per pharmacy kb4 instructions Route: IV; Rate: per protocol; Site: right antecubital; 13:16 Follow up: Response: No adverse reaction kb4 13:16 Follow up: IV Status: Completed infusion kb4 Medication: 13:18 VIS not applicable for this client. kb4 Outcome: 13:05 Discharge ordered by MD. fitzgerald 13:16 Discharged to home ambulatory, kb4 13:16 Condition: good 13:16 Discharge instructions given to patient, Instructed on discharge instructions, follow up and referral plans. medication usage, wound care, Demonstrated understanding of instructions, follow-up care, medications, wound care, Prescriptions given X 2, 13:18 Patient left the ED. kb4 Signatures: Natasha Henderson RN RN ll1 Stanley Lee, CORK PRESSING MACHINE OPERATOR-C CORK PRESSING MACHINE OPERATOR-Cdr5 Maty Cheng al6 Tracey Bowens RN RN kb4
[2025-04-16 13:59] VITALS: TEMP 100.1; O2SAT 99
[2025-04-16 14:04] VITALS: BP 122/63
== END 2025-04-16 13:18 | disposition home or self-care (01) ==
LOC: ER 11:01
PROC: 0H9AXZZ Drainage of Inguinal Skin, External Approach (ICD-10-PCS; principal; 2025-04-16)
DX: L02.214 Cutaneous abscess of groin (principal); N39.0 Urinary tract infection, site not specified
CPT/HCPCS: 96361; 93005; 87088; 81001; 87086; 81025; 87077; 87186; 96374; 99284; 10060; J2003; J7030; J0696